=== PATIENT | male | born 1960 | race Caucasian/White ===

== ENCOUNTER 2017-02-08 16:31 | Inpatient (IN) | payer OTHER ==
[2017-02-08 16:36] VITALS: BMI 34.7
--- NOTE | 2017-02-08 17:01 | PDOC ---
History of Present Illness <Eric Kaur - Last Filed: 02/08/17 22:06> <Petros Allen - Last Filed: 02/08/17 22:41> - General Chief Complaint: Pain Stated Complaint: PCP SENT/PAIN Time Seen by Provider: 02/08/17 16:59 Past History - Past Medical History GI Disorders: Yes (gastritis) - Psycho/Social/Smoking Cessation Hx Suicidal Ideation: No Smoking History: Never smoked Information on smoking cessation initiated: No Hx Alcohol Use: No Drug/Substance Use Hx: No Substance Use Type: None <Eric Kaur - Last Filed: 02/08/17 22:06> <Petros Allen - Last Filed: 02/08/17 22:41> - Past Medical History Allergies/Adverse Reactions: Allergies Allergy/AdvReac Type Severity Reaction Status Date / Time No Known Allergies Allergy Verified 02/08/17 16:36 Home Medications: Ambulatory Orders NK [No Known Home Medication] 02/08/17 *Physical Exam - Vital Signs Last Vital Signs Temp Pulse Resp BP Pulse Ox 99.1 F 125 H 18 116/77 96 02/08/17 16:34 02/08/17 16:34 02/08/17 16:34 02/08/17 16:34 02/08/17 16:34 <Eric Kaur - Last Filed: 02/08/17 22:06> - Vital Signs Last Vital Signs Temp Pulse Resp BP Pulse Ox 99.1 F 125 H 18 116/77 96 02/08/17 16:34 02/08/17 16:34 02/08/17 16:34 02/08/17 16:34 02/08/17 16:34 <Petros Allen - Last Filed: 02/08/17 22:41> Heart Score/ECG Review - ECG Impressions Comment:: 02/08/17 19:[address] Kaur Impression: Normal sinus rhythm Cannot rule out inferior infarct Abnormal EKG Vent rate 98 bpm <Petros Allen - Last Filed: 02/08/17 22:41> ED Treatment Course - LABORATORY CBC & Chemistry Diagram: 02/08/17 17:35 02/08/17 17:35 <Eric Kaur - Last Filed: 02/08/17 22:06> - LABORATORY CBC & Chemistry Diagram: 02/08/17 22:03 02/08/17 17:35 - ADDITIONAL ORDERS Additional order review: Laboratory Results 02/08/17 02/08/17 02/08/17 18:18 17:35 17:35 Sodium 138 Potassium 4.4 Chloride 100 Carbon Dioxide 28 Anion Gap 10 BUN 17 Creatinine 1.1 Creat Clearance w eGFR > 60 Random Glucose 103 Calcium 9.0 Total Bilirubin 0.7 Direct Bilirubin 0.3 H AST 78 H D ALT 74 D Alkaline Phosphatase 73 Creatine Kinase 244 Troponin I 4.98 H* Total Protein 6.6 Albumin 2.9 L D Lipase 716 H Urine Color Dkyellow Urine Appearance Clear Urine pH 5.0 Urine Protein Negative Urine Glucose (UA) Negative Urine Ketones Negative Urine Blood 1+ H Urine Nitrite Negative Urine Bilirubin Negative Urine Urobilinogen Negative Ur Leukocyte Esterase Negative 02/08/17 17:35 RBC 5.13 MCV 83.2 MCHC 33.0 RDW 13.1 MPV 9.0 Neutrophils % 83.8 H Lymphocytes % 6.4 L D Monocytes % 9.1 Eosinophils % 0.2 Basophils % 0.5 - Medications Given in the ED: ED Medications Discontinued Medications Generic Name Dose Route Start Last Admin Trade Name Freq PRN Reason Stop Dose Admin Sodium Chloride 1,000 mls @ 1,000 mls/hr 02/08/17 17:09 02/08/17 17:41 Normal Saline - IV 02/08/17 18:08 1,000 mls/hr ASDIR STA Administration <Petros Allen - Last Filed: 02/08/17 22:41> Medical Decision Making - Medical Decision Making Upon receiving the results for troponin results, Dr. Kaur immediately ordered a repeat ECG and put in orders for aspirin, nitro, and beta blockers. The patient has no pain at present although he does admit to some RUQ discomfort. At the directive of Dr. Foss patient was given Nitro for RUQ pain which has resolved. Patient remains pain free. 02/08/17 19:43 First call to Doctor Dominiuqe harvey. Dr. Junior is the sales consultant residential manager doctor. Awaiting call back. 02/08/17 19:51 Dr. Junior called back. Case discussed. Advised to consult the sales consultant residential manager dry house operator. 02/08/17 19:59 First call to sales consultant residential manager dry house operator, Dr. Foss. 02/08/17 20:01 Dr. Foss called into the ED. 02/08/17 22:03 First call (for second discussion) to Dr. Vernon harvey. 02/08/17 22:28 Second call (for second discussion) to Dr. Vernon harvey 02/08/17 22:39 Dr. Parsons called into ER for Dr. Junior. Case discussed. Agreed to consult Dr. Stack 02/08/17 22:[address] Sreekanth harvey. Awaiting call back. Diagnosis: NSTEMI <Petros Allen - Last Filed: 02/08/17 22:41> *DC/Admit/Observation/Transfer - Discharge Dispostion Admit: Yes - Attestations Physician Attestion: 02/08/17 17:01 I, Dr. Eric Kaur, attest that this document has been prepared under my direction and personally reviewed by me in its entirety. I further attest, that it accurately reflects all work, treatment, procedures and medical decision -making performed by me. <Eric Kaur - Last Filed: 02/08/17 22:06> - Attestations Scribe Attestion: 02/08/17 22:27 Documentation prepared by Petros Allen, acting as medical office coordinator for Eric Kaur DO. <Petros Allen - Last Filed: 02/08/17 22:41> Diagnosis at time of Disposition: Non-STEMI (non-ST elevated myocardial infarction), Acute cholecystitis due to biliary calculus - Discharge Dispostion Condition at time of disposition: Improved - Referrals
[2017-02-08] MEDS ORDERED: SODIUM CHLORIDE 1,000 ML IV STA (17:09)
--- NOTE | 2017-02-08 17:40 | PDOC ---
History of Present Illness <Petros Allen - Last Filed: 02/08/17 20:18> - General History Source: Patient Exam Limitations: No Limitations - History of Present Illness Travel History: No Initial Comments: 02/08/17 17:40 57 yo M with significant PMHx of hiatal hernia presents with one week history of worsening abdominal pain. He is patient of Dr. Grey and was sent today for CT of abdomen. CT should gallbladder wall thickening and patient has had increased RUQ pain with fevers and chills. Describes 6/10 RUQ pain that radiates to epigastrium. Aggravated by eating and position change. No alleviating factors.Had tried Nexium with minimal relief. Denies CP,SPRING, SOB, N/ V. Timing/Duration: reports: getting worse Quality: reports: moderate Abdominal Pain Onset Location: reports: RUQ Pain Radiation: reports: epigastric Treatment Prior to Arrive: improves with: antacids Aggravating Factors: improves with: Eating <Juan Wiley - Last Filed: 02/09/17 16:19> - General Chief Complaint: Pain Stated Complaint: PCP SENT/PAIN Time Seen by Provider: 02/08/17 16:59 Past History <Petros Allen - Last Filed: 02/08/17 20:18> - Travel Traveled outside of the country in the last 30 days: No Close contact w/someone who was outside of country & ill: No - Past Medical History GI Disorders: Yes (gastritis) - Psycho/Social/Smoking Cessation Hx Suicidal Ideation: No Smoking History: Never smoked Information on smoking cessation initiated: No Hx Alcohol Use: No Drug/Substance Use Hx: No Substance Use Type: None <Juan Wiley - Last Filed: 02/09/17 16:19> - Past Medical History Allergies/Adverse Reactions: Allergies Allergy/AdvReac Type Severity Reaction Status Date / Time No Known Allergies Allergy Verified 02/08/17 16:36 Home Medications: Ambulatory Orders NK [No Known Home Medication] 02/08/17 Review of Systems - Review of Systems ABD/GI: Yes: Poor Appetite, Poor Fluid Intake <Juan Wiley - Last Filed: 02/09/17 16:19> *Physical Exam - Vital Signs Last Vital Signs Temp Pulse Resp BP Pulse Ox 99.1 F 113 H 20 118/77 96 02/08/17 16:34 02/08/17 20:04 02/08/17 20:04 02/08/17 20:04 02/08/17 20:04 <Petros Allen - Last Filed: 02/08/17 20:18> - Vital Signs Last Vital Signs Temp Pulse Resp BP Pulse Ox 99.1 F 125 H 18 116/77 96 02/08/17 16:34 02/08/17 16:34 02/08/17 16:34 02/08/17 16:34 02/08/17 16:34 - Physical Exam General Appearance: Yes: Moderate Distress HEENT: positive: EOMI, ALY Neck: positive: Supple Respiratory/Chest: positive: Lungs Clear, Normal Breath Sounds. negative: Respiratory Distress, Accessory Muscle Use Cardiovascular: positive: Regular Rhythm, S1, S2, Tachycardia. negative: Edema , JVD, Murmur Gastrointestinal/Abdominal: positive: Normal Bowel Sounds, Soft, Guarding, Tenderness (RUQ). negative: Hepatomegaly, Spleenomegaly Musculoskeletal: positive: Normal Inspection. negative: CVA Tenderness Extremity: positive: Normal Inspection, Normal Range of Motion Integumentary: positive: Normal Color, Dry, Warm. negative: Cyanotic, Erythema , Jaundice Neurologic: positive: regional environmental manager II-XII NML intact, Fully Oriented, Alert, Normal Mood/ Affect <Juan Wiley - Last Filed: 02/09/17 16:19> Heart Score/ECG Review - ECG Impressions Comment:: 02/08/17 20:18 Repeated ECG Normal Sinus rhythm Cannot rule out inderior infarct, age undetermnined. Abnormal ECG Rate of 98 bpm No changes from initial ECG <Petros Allen - Last Filed: 02/08/17 20:18> ED Treatment Course - LABORATORY CBC & Chemistry Diagram: 02/08/17 17:35 02/08/17 17:35 - ADDITIONAL ORDERS Additional order review: Laboratory Results 02/08/17 02/08/17 02/08/17 18:18 17:35 17:35 Sodium 138 Potassium 4.4 Chloride 100 Carbon Dioxide 28 Anion Gap 10 BUN 17 Creatinine 1.1 Creat Clearance w eGFR > 60 Random Glucose 103 Calcium 9.0 Total Bilirubin 0.7 Direct Bilirubin AST 78 H D ALT 74 D Alkaline Phosphatase 73 Creatine Kinase Creatine Kinase Index CK-MB (CK-2) CK-MB (CK-2) Rel Index Cancelled Troponin I Total Protein 6.6 Albumin 2.9 L D Lipase 716 H Urine Color Dkyellow Urine Appearance Clear Urine pH 5.0 Urine Protein Negative Urine Glucose (UA) Negative Urine Ketones Negative Urine Blood 1+ H Urine Nitrite Negative Urine Bilirubin Negative Urine Urobilinogen Negative Ur Leukocyte Esterase Negative Urine RBC 5 Urine WBC 1 Urine Mucus Few 02/08/17 17:35 Sodium Potassium Chloride Carbon Dioxide Anion Gap BUN Creatinine Creat Clearance w eGFR Random Glucose Calcium Total Bilirubin Direct Bilirubin 0.3 H AST ALT Alkaline Phosphatase Creatine Kinase 244 Creatine Kinase Index 3.4 CK-MB (CK-2) 8.226 H CK-MB (CK-2) Rel Index Troponin I 4.98 H* Total Protein Albumin Lipase Urine Color Urine Appearance Urine pH Urine Protein Urine Glucose (UA) Urine Ketones Urine Blood Urine Nitrite Urine Bilirubin Urine Urobilinogen Ur Leukocyte Esterase Urine RBC Urine WBC Urine Mucus 02/08/17 17:35 RBC 5.13 MCV 83.2 MCHC 33.0 RDW 13.1 MPV 9.0 Neutrophils % 83.8 H Lymphocytes % 6.4 L D Monocytes % 9.1 Eosinophils % 0.2 Basophils % 0.5 - Medications Given in the ED: ED Medications Discontinued Medications Generic Name Dose Route Start Last Admin Trade Name Freq PRN Reason Stop Dose Admin Aspirin 324 mg 02/08/17 19:32 02/08/17 19:50 Asa - PO 02/08/17 19:33 324 mg ONCE ONE Administration Sodium Chloride 1,000 mls @ 1,000 mls/hr 02/08/17 17:09 02/08/17 17:41 Normal Saline - IV 02/08/17 18:08 1,000 mls/hr ASDIR STA Administration Metoprolol Tartrate 25 mg 02/08/17 19:32 02/08/17 19:50 Lopressor - PO 02/08/17 19:33 25 mg ONCE ONE Administration <Petros Allen - Last Filed: 02/08/17 20:18> - LABORATORY CBC & Chemistry Diagram: 02/09/17 03:39 02/09/17 03:39 <Juan Wiley - Last Filed: 02/09/17 16:19> Medical Decision Making - Medical Decision Making 02/08/17 17:46 A:57 yo M with significant PMHx of hiatal hernia presents with one week history of worsening abdominal pain P: * Will get CBC, CMP, and UA * Gallbladder US. * Will most likely need admission. <Juan Wiley - Last Filed: 02/09/17 16:19> *DC/Admit/Observation/Transfer <Petros Allen - Last Filed: 02/08/17 20:18> <Juan Wiley - Last Filed: 02/09/17 16:19> Diagnosis at time of Disposition: Non-STEMI (non-ST elevated myocardial infarction), Acute cholecystitis due to biliary calculus - Discharge Dispostion Condition at time of disposition: Improved - Referrals - Patient Instructions - Post Discharge Activity
[2017-02-08 18:18] LABS: BASOPHIL 0.5 % (0-2.0); EOSINOPHIL 0.2 % (0-4.5); MCH 27.4 pg (25.7-33.7); MEAN CELL VOLUME 83.2 fl (80-96); NEUTROPHILS 83.8 % (42.8-82.8); PLATELET COUNT 213 K/MM3 (134-434); RDW 13.1 % (11.9-15.9); WHITE BLOOD COUNT 13.9 K/mm3 (4.0-10.0)
[2017-02-08 19:05] LABS: ALBUMIN 2.9 g/dl (3.4-5.0); ANION GAP 10 (8-16); CO2 28 mmol/L (21-32); CREATININE 1.1 mg/dL (0.7-1.3); GLUCOSE,RANDOM 103 mg/dL (74-106); SGOT/AST 78 U/L (15-37); SGPT/ALT 74 U/L (12-78)
[2017-02-08 19:07] LABS: ALK PHOS 73 U/L (45-117); BILIRUBIN,TOTAL 0.7 mg/dL (0.2-1.0); TOT PROT 6.6 g/dl (6.4-8.2)
[2017-02-08 19:25] LABS: BILIRUBIN,DIRECT 0.3 mg/dL (0.0-0.2)
[2017-02-08 19:27] LABS: URINE APPEARANCE CLEAR; URINE BILIRUBIN NEGATIVE (NEGATIVE); URINE COLOR DKYELLOW; URINE GLUCOSE (UA) NEGATIVE (NEGATIVE); URINE KETONE NEGATIVE (NEGATIVE); URINE LEUK ESTERASE NEGATIVE (NEGATIVE); URINE NITRITE NEGATIVE (NEGATIVE); URINE PROTEIN NEGATIVE (NEGATIVE); URINE UROBILINOGEN NEGATIVE E.U./dl (0.2-1.0)
[2017-02-08 19:28] LABS: TROPONIN I 4.98 ng/ml (0.00-0.05)
[2017-02-08 19:28] LABS: URINE BLOOD 1+ (NEGATIVE)
[2017-02-08] MEDS ORDERED: ASPIRIN 81 MG CHEWABLE TABLETS PO ONE (19:32)
[2017-02-08] MEDS ORDERED: NITROGLYCERIN SUBLINGUAL 1/150 0.4 MG TAB SL PRN (19:32)
[2017-02-08] MEDS ORDERED: METOPROLOL TARTRATE 25 MG TABLET (FP) PO ONE (19:32)
[2017-02-08 19:35] LABS: URINE MUCUS FEW; URINE RBC 5 /hpf (0-3); URINE WBC 1 /hpf (3-5)
[2017-02-08] MEDS ORDERED: NITROGLYCERIN SUBLINGUAL 1/150 0.4 MG TAB ONE (19:42)
[2017-02-08] MEDS ORDERED: ASPIRIN 325 MG TABLET ONE (19:52)
[2017-02-08] MEDS ORDERED: METOPROLOL TARTRATE 25 MG TABLET (FP) ONE (19:53)
[2017-02-08] MEDS ORDERED: HEPARIN NA (PORCINE) 5,000 UNITS/ML 1ML VIAL IVPUSH PRN (20:06)
[2017-02-08] MEDS ORDERED: CLOPIDOGREL BISULFATE 300 MG TABLET PO ONE (20:07)
[2017-02-08] MEDS ORDERED: ATORVASTATIN CA 80 MG TABLET (FP) PO ONE (20:07)
[2017-02-08] MEDS ORDERED: ATORVASTATIN CA 80 MG TABLET (FP) ONE (20:21)
[2017-02-08] MEDS ORDERED: CLOPIDOGREL BISULFATE 300 MG TABLET ONE (20:21)
[2017-02-08] MEDS ORDERED: HEPARIN NA (PORCINE) 5,000 UNITS/ML 1ML VIAL ONE (20:24)
[2017-02-08] MEDS: HEPARIN NA (PORCINE) 5,000 UNITS/ML 1ML VIAL IVPUSH PRN (20:31)
[2017-02-08] MEDS ORDERED: HEPARIN INFUSION - 500 ML IVPB ONE (20:32)
[2017-02-08] MEDS: HEPARIN INFUSION - 500 ML IVPB SCH (21:12)
--- NOTE | 2017-02-08 21:26 | HP ---
Admitting History and Physical - Primary Care Physician PCP: Corey Fox - Admission Chief Complaint: Abdominal pain History of Present Illness: Patient with a history of GERD on PPI has been having abdominal pain for about 1 week usually epigastric in location. He was referred to GI service and they ordered an Abdominal CAT scan and lab. Report was possible acute Cholecystitis and WBC 13,900. Referred to ER and sonogram in ER confirmed dx but Troponin level elevated at 4.98. Possible NSTEMI. To be admitted to Telemetry as per Cardiology and I will place on IV antibiotics with followup testing. History Source: Patient Limitations to Obtaining History: No Limitations - Past Medical History Cardiovascular: Yes: Hyperlipdemia Gastrointestinal: Yes: Gastritis, GERD, Other (inguinal hernia) Hepatobiliary: Yes: Cholecystitis Endocrine: Yes: Other (Obesity) - Smoking History Smoking history: Never smoked - Alcohol/Substance Use Hx Alcohol Use: No History of Substance Use: reports: None - Social History Usual Living Arrangement: Yes: With Spouse ADL: Independent History of Recent Travel: No Home Medications - Allergies Allergies/Adverse Reactions: Allergies Allergy/AdvReac Type Severity Reaction Status Date / Time No Known Allergies Allergy Verified 02/08/17 16:36 - Home Medications Home Medications: Ambulatory Orders NK [No Known Home Medication] 02/08/17 Family Disease History - Family Disease History Family Disease History: Other: Father (parkinsonism) Review of Systems - Review of Systems Constitutional: denies: Chills, Fever Cardiovascular: reports: Other (no) Respiratory: denies: SOB on Exertion Gastrointestinal: reports: Abdominal Pain (epigastric off and on X 1 week), Indigestion Genitourinary: reports: No Symptoms Breasts: reports: No Symptoms Reported Musculoskeletal: reports: No Symptoms Integumentary: reports: No Symptoms Neurological: reports: No Symptoms, Change in Speech (no exertional chest pain) Hematology/Lymphatic: reports: No Symptoms Psychiatric: reports: Anxiety Pain Intensity: 3 Physical Examination Vital Signs: Vital Signs Temperature 99.1 F 02/08/17 16:34 Pulse Rate 113 H 02/08/17 20:04 Respiratory Rate 20 02/08/17 20:04 Blood Pressure 118/77 02/08/17 20:04 O2 Sat by Pulse Oximetry (%) 96 02/08/17 20:04 Constitutional: Yes: Anxious Eyes: Yes: Conjunctiva Clear Cardiovascular: Yes: Tachycardia Respiratory: Yes: Diminished Gastrointestinal: Yes: Soft, Hyperactive Bowel Sounds, Tenderness, Epigastrium ( mild) Musculoskeletal: Yes: WNL Extremities: Yes: WNL Edema: No Integumentary: Yes: WNL Neurological: Yes: Alert, Oriented ...Motor Strength: WNL Psychiatric: Yes: WNL Labs: CBC, BMP 02/08/17 17:35 Imaging - Results Cat Scan: Report Reviewed Ultrasound: Report Reviewed EKG: Report Reviewed Problem List - Problems (1) Non-STEMI (non-ST elevated myocardial infarction) Assessment/Plan: Troponin 4.98 EKG no acute change from previous. Code(s): I21.4 - NON-ST ELEVATION (NSTEMI) MYOCARDIAL INFARCTION (2) Abdominal pain Assessment/Plan: Mild degree of pain now. Code(s): R10.9 - UNSPECIFIED ABDOMINAL PAIN (3) Acute cholecystitis Assessment/Plan: Confirmed by Abdominal sonogram. Elevated lipase Code(s): K81.0 - ACUTE CHOLECYSTITIS (4) Obesity Assessment/Plan: 235 lbs. Code(s): E66.9 - OBESITY, UNSPECIFIED (5) Hyperlipidemia Assessment/Plan: By history; lab ordered for AM Code(s): E78.5 - HYPERLIPIDEMIA, UNSPECIFIED
[2017-02-08] MEDS ORDERED: SENNOSIDES 8.6MG TABLET (FP) PO PRN (21:42)
[2017-02-08] MEDS ORDERED: PIPERACILLIN/TAZOB 4.5 GM 100 ML IVPB ONE (22:06)
[2017-02-08] MEDS: PIPERACILLIN/TAZOB 4.5 GM/100 ML PRE-DOCKED IVPB SCH (22:09)
[2017-02-08 22:12] LABS: BASOPHIL 0.2 % (0-2.0); EOSINOPHIL 0.2 % (0-4.5); MCH 27.9 pg (25.7-33.7); MCHC 33.2 g/dl (32.0-35.9); MEAN CELL VOLUME 83.8 fl (80-96); MEAN PLT VOLUME 8.9 fl (7.5-11.1); NEUTROPHILS 84.1 % (42.8-82.8); PLATELET COUNT 188 K/MM3 (134-434); RDW 13.3 % (11.9-15.9); WHITE BLOOD COUNT 12.7 K/mm3 (4.0-10.0)
[2017-02-08 22:37] LABS: ALBUMIN 2.8 g/dl (3.4-5.0); AMYLASE 67 U/L (25-115); ANION GAP 9 (8-16); BILIRUBIN,TOTAL 0.6 mg/dL (0.2-1.0); CALCIUM 8.1 mg/dL (8.5-10.1); CO2 26 mmol/L (21-32); CREATININE 1.1 mg/dL (0.7-1.3); GLUCOSE,RANDOM 122 mg/dL (74-106); SGOT/AST 75 U/L (15-37); SGPT/ALT 66 U/L (12-78); TOT PROT 6.1 g/dl (6.4-8.2)
[2017-02-08 22:53] LABS: ALK PHOS 71 U/L (45-117)
[2017-02-08 23:28] LABS: TROPONIN I 4.51 ng/ml (0.00-0.05)
[2017-02-09] MEDS: PIPERACILLIN/TAZOB 4.5 GM/100 ML PRE-DOCKED IVPB SCH ×3 (01:55→17:10)
[2017-02-09 03:50] LABS: BASOPHIL 0.2 % (0-2.0); EOSINOPHIL 0.4 % (0-4.5); MCH 27.7 pg (25.7-33.7); MCHC 33.1 g/dl (32.0-35.9); MEAN CELL VOLUME 83.8 fl (80-96); NEUTROPHILS 79.4 % (42.8-82.8); PLATELET COUNT 193 K/MM3 (134-434); RDW 13.3 % (11.9-15.9); WHITE BLOOD COUNT 12.2 K/mm3 (4.0-10.0)
[2017-02-09 04:40] LABS: TROPONIN I 2.87 ng/ml (0.00-0.05)
[2017-02-09 04:51] LABS: ALBUMIN 2.5 g/dl (3.4-5.0); ALK PHOS 67 U/L (45-117); AMYLASE 65 U/L (25-115); ANION GAP 9 (8-16); BILIRUBIN,TOTAL 0.6 mg/dL (0.2-1.0); C-REACTIVE PROTEIN 14.9 MG/DL (0.00-0.3); CALCIUM 8.5 mg/dL (8.5-10.1); CO2 27 mmol/L (21-32); CREATININE 1.1 mg/dL (0.7-1.3); GLUCOSE,RANDOM 117 mg/dL (74-106); SGOT/AST 56 U/L (15-37); SGPT/ALT 63 U/L (12-78); TOT PROT 5.8 g/dl (6.4-8.2)
[2017-02-09] MEDS: HEPARIN NA (PORCINE) 5,000 UNITS/ML 1ML VIAL IVPUSH PRN ×3 (05:47→23:26)
[2017-02-09 06:26] LABS: ERYTHROCYTE SEDIMENTATION RATE 78 mm/hr (0-20)
--- NOTE | 2017-02-09 09:57 | PN ---
Progress Note, Physician Chief Complaint: Patient has no abdominal or chest pain today. - Current Medication List Current Medications: Active Medications Acetaminophen (Tylenol -) 650 mg PO Q6H PRN PRN Reason: FEVER OR PAIN Heparin Sodium (Porcine) (Heparin -) 1,000 unit IVPUSH PRN PRN PRN Reason: Heparin Heparin Sodium (Porcine) (Heparin -) 5,000 unit IVPUSH PRN PRN PRN Reason: Heparin Last Admin: 02/09/17 05:47 Dose: 5,000 unit Heparin Sodium/Dextrose (Heparin Infusion -) 500 mls @ 20 mls/hr IVPB TITR THEODORA ; 1,000 UNITS/HR PRN Reason: Protocol Last Titration: 02/09/17 05:48 Dose: 1,150 units/hr Nitroglycerin (Nitrostat -) 0.4 mg SL Q5M PRN PRN Reason: FOR CHEST PAIN Last Admin: 02/08/17 19:47 Dose: 0.4 mg Piperacillin Sod/Tazobactam Sod (Zosyn 4.5gm Ivpb (Pre-Docked)) 4.5 gm IVPB Q8H -IV THEODORA Last Admin: 02/09/17 01:55 Dose: 4.5 gm Senna (Senna -) 2 tab PO HS PRN PRN Reason: CONSTIPATION - Objective Vital Signs: Vital Signs Temperature 98.1 F 02/09/17 06:00 Pulse Rate 96 H 02/09/17 06:00 Respiratory Rate 18 02/09/17 06:00 Blood Pressure 115/68 02/09/17 06:00 O2 Sat by Pulse Oximetry (%) 98 02/09/17 06:00 Constitutional: Yes: Calm Eyes: No: Sclera Icterus Cardiovascular: Yes: Regular Rate and Rhythm. No: Murmur Respiratory: Yes: Diminished. No: Rales Gastrointestinal: Yes: Soft, Abdomen, Obese, Tenderness (mild RUQ) Genitourinary: No: Alvarado Present Edema: No Neurological: Yes: Alert, Oriented Labs: CBC, BMP 02/09/17 03:39 02/09/17 03:39 Problem List - Problems (1) Non-STEMI (non-ST elevated myocardial infarction) Assessment/Plan: Troponin still elevated but lower at 2.87 today To review EKG Code(s): I21.4 - NON-ST ELEVATION (NSTEMI) MYOCARDIAL INFARCTION (2) Abdominal pain Assessment/Plan: Only slight RUQ tenderness on deep palpation. Code(s): R10.9 - UNSPECIFIED ABDOMINAL PAIN (3) Acute cholecystitis Assessment/Plan: Sono report noted. Code(s): K81.0 - ACUTE CHOLECYSTITIS (4) Obesity Assessment/Plan: 235 lbs. Code(s): E66.9 - OBESITY, UNSPECIFIED (5) Hyperlipidemia Assessment/Plan: Lipid profile ordered. Code(s): E78.5 - HYPERLIPIDEMIA, UNSPECIFIED
--- NOTE | 2017-02-09 10:26 | PN ---
Progress Note (short form) - Note Progress Note: ID consult consulted imp/reccd acute cholycystitis NSTEMI f/u blood cultures continue zosyn surgery and cardiology to see Problem List - Problems (1) Acute cholecystitis Code(s): K81.0 - ACUTE CHOLECYSTITIS (2) Non-STEMI (non-ST elevated myocardial infarction) Code(s): I21.4 - NON-ST ELEVATION (NSTEMI) MYOCARDIAL INFARCTION
--- NOTE | 2017-02-09 10:50 | EKG ---
Test Reason : Blood Pressure : / mmHG Vent. Rate : 107 BPM Atrial Rate : 107 BPM P-R Int : 122 ms QRS Dur : 080 ms QT Int : 322 ms P-R-T Axes : 049 -05 006 degrees QTc Int : 429 ms SINUS TACHYCARDIA POSSIBLE INFERIOR INFARCT (CITED ON OR BEFORE 08-FEB-2017) ABNORMAL ECG WHEN COMPARED WITH ECG OF 08-FEB-2017 18:07, NO SIGNIFICANT CHANGE WAS FOUND Confirmed by IVET POOLE, LUH ([id number]) on 02/09/2017 10:49:55 AM Referred By: BERNY Confirmed By:LUH COONEY MD
--- NOTE | 2017-02-09 10:52 | EKG ---
Test Reason : Blood Pressure : / mmHG Vent. Rate : 083 BPM Atrial Rate : 083 BPM P-R Int : 130 ms QRS Dur : 096 ms QT Int : 358 ms P-R-T Axes : 066 007 006 degrees QTc Int : 420 ms NORMAL SINUS RHYTHM CANNOT RULE OUT INFERIOR INFARCT (CITED ON OR BEFORE 08-FEB-2017) ABNORMAL ECG WHEN COMPARED WITH ECG OF 08-FEB-2017 20:13, NO SIGNIFICANT CHANGE WAS FOUND Confirmed by LUH COONEY MD ([id number]) on 02/09/2017 10:52:02 AM Referred By: BOUBACAR FOWLER Confirmed By:LUH COONEY MD
--- NOTE | 2017-02-09 10:54 | EKG ---
Test Reason : Blood Pressure : / mmHG Vent. Rate : 105 BPM Atrial Rate : 105 BPM P-R Int : 128 ms QRS Dur : 076 ms QT Int : 324 ms P-R-T Axes : 069 010 017 degrees QTc Int : 428 ms SINUS TACHYCARDIA CANNOT RULE OUT INFERIOR INFARCT (CITED ON OR BEFORE 08-FEB-2017) EARLY REPOLARIZATION WHEN COMPARED WITH ECG OF 03-JUL-2014 19:40, ST ELEVATION NOW PRESENT IN LATERAL LEADS Confirmed by LUH COONEY MD ([id number]) on 02/09/2017 10:54:17 AM Referred By: Confirmed By:LUH COONEY MD
[2017-02-09 11:23] LABS: CHOLESTEROL 145 mg/dL (50-200); LDL CHOLESTEROL (ONLY SJRH) 110 mg/dL (5-100)
--- NOTE | 2017-02-09 12:02 | CON.CARD ---
Cardiology Consult (text) - Consultation Consultation Note: cc: abd pain, fever hpi: 57 m hx gerd, hld here with abd pain, fever. Has been having abd pain ( across entire lower abd) for about a month but over last week has been much worse with fever as well. Outpt imaging showed acute kandy so sent to ER and started on abx. No cp, sob, palps, dizzy, loc, pnd, orthopnea, le edema. No hx hrt dz, no prior cardiac testing. Found to have +trops so cardio eval requested. This AM feeling less abd pain. pmh: per hpi psh: nc fam: no premature cad or scd social: no tob ros: per hpi; no cough, nasal congestion, rash, muscle pain, soto, vision changes , gib, hematuria, dysuria meds: Home Medications Medication Instructions Recorded NK [No Known Home Medication] 02/08/17 pe: Vital Signs Period Temp Pulse Resp BP Sys/Bernal Pulse Ox Last 24 Hr 98 F-99.1 F 10-125 18-20 108-128/68-82 96-98 nad no jvd rrr s1s2 no mrg cta bl nl eff aaox3 no le e/c/c abd nd, pos bs, mild diff tenderness no jaundice diaphoresis pos dp pt no carotid bruits Laboratory Last Values WBC 12.2 K/mm3 (4.0-10.0) H 02/09/17 03:39 RBC 4.61 M/mm3 (4.00-5.60) 02/09/17 03:39 Hgb 12.8 GM/dL (11.7-16.9) 02/09/17 03:39 Hct 38.6 % (35.4-49) 02/09/17 03:39 MCV 83.8 fl (80-96) 02/09/17 03:39 MCHC 33.1 g/dl (32.0-35.9) 02/09/17 03:39 RDW 13.3 % (11.9-15.9) 02/09/17 03:39 Plt Count 193 K/MM3 (134-434) 02/09/17 03:39 MPV 9.0 fl (7.5-11.1) 02/09/17 03:39 Neutrophils % 79.4 % (42.8-82.8) 02/09/17 03:39 Lymphocytes % 9.1 % (8-40) D 02/09/17 03:39 Monocytes % 10.9 % (3.8-10.2) H 02/09/17 03:39 Eosinophils % 0.4 % (0-4.5) D 02/09/17 03:39 Basophils % 0.2 % (0-2.0) 02/09/17 03:39 ESR 78 mm/hr (0-20) H 02/09/17 03:39 PTT (Actin FS) 29.7 SECONDS (26.9-34.4) 02/09/17 03:39 Sodium 141 mmol/L (136-145) 02/09/17 03:39 Potassium 4.1 mmol/L (3.5-5.1) 02/09/17 03:39 Chloride 105 mmol/L (98-107) 02/09/17 03:39 Carbon Dioxide 27 mmol/L (21-32) 02/09/17 03:39 Anion Gap 9 (8-16) 02/09/17 03:39 BUN 19 mg/dL (7-18) H 02/09/17 03:39 Creatinine 1.1 mg/dL (0.7-1.3) 02/09/17 03:39 Creat Clearance w eGFR > 60 (>60) 02/09/17 03:39 Random Glucose 117 mg/dL (74-106) H 02/09/17 03:39 Calcium 8.5 mg/dL (8.5-10.1) 02/09/17 03:39 Total Bilirubin 0.6 mg/dL (0.2-1.0) 02/09/17 03:39 Direct Bilirubin 0.3 mg/dL (0.0-0.2) H 02/08/17 17:35 AST 56 U/L (15-37) H D 02/09/17 03:39 ALT 63 U/L (12-78) 02/09/17 03:39 Alkaline Phosphatase 67 U/L (45-117) 02/09/17 03:39 Creatine Kinase 133 IU/L (39-308) 02/09/17 03:35 Creatine Kinase Index 3.4 % (0.0-5.0) 02/08/17 17:35 CK-MB (CK-2) 8.226 ng/ml (0.5-3.6) H 02/08/17 17:35 CK-MB (CK-2) Rel Index Cancelled 02/08/17 17:35 Troponin I 2.87 ng/ml (0.00-0.05) H* D 02/09/17 03:35 C-Reactive Protein 14.9 MG/DL (0.00-0.3) H 02/09/17 03:39 Total Protein 5.8 g/dl (6.4-8.2) L 02/09/17 03:39 Albumin 2.5 g/dl (3.4-5.0) L 02/09/17 03:39 Triglycerides Cancelled 02/09/17 10:30 Cholesterol Cancelled 02/09/17 10:30 Total LDL Cholesterol Cancelled 02/09/17 10:30 HDL Cholesterol Cancelled 02/09/17 10:30 Total Amylase 65 U/L (25-115) 02/09/17 03:39 Lipase 866 U/L (73-393) H 02/09/17 03:39 Urine Color Dkyellow 02/08/17 18:18 Urine Appearance Clear 02/08/17 18:18 Urine pH 5.0 (5.0-8.0) 02/08/17 18:18 Urine Protein Negative (NEGATIVE) 02/08/17 18:18 Urine Glucose (UA) Negative (NEGATIVE) 02/08/17 18:18 Urine Ketones Negative (NEGATIVE) 02/08/17 18:18 Urine Blood 1+ (NEGATIVE) H 02/08/17 18:18 Urine Nitrite Negative (NEGATIVE) 02/08/17 18:18 Urine Bilirubin Negative (NEGATIVE) 02/08/17 18:18 Urine Urobilinogen Negative E.U./dl (0.2-1.0) 02/08/17 18:18 Ur Leukocyte Esterase Negative (NEGATIVE) 02/08/17 18:18 Urine RBC 5 /hpf (0-3) 02/08/17 18:18 Urine WBC 1 /hpf (3-5) 02/08/17 18:18 Urine Mucus Few 02/08/17 18:18 tele: sr, no alarms ecg 02/08/17: sr, nl intervals, no ischemic changes a/p: 57 m hx gerd, hld here with abd pain, fever. acute cholecystitis: -cont abx, remains npo -surgery eval positive trops, possible nstemi: -trops elevated to 4.9 on admit, now trending down, 2.8. CK nl x3. ECG unremarkable. -it is possible pt is having elevated trops in setting of acute kandy but also possibly having nstemi. He was started on hep gtt overnight for acs and also given loading dose of plavix. -given his acute kandy and the possibility he may need acute interventions, will hold asa/plavix for now and cont with hep gtt -will check echo to look for any WMAs -for now cont tele and trend ce's -if he is to have non-emergent intervention for acute kandy he will likely need risk stratification with nuclear stress test beforehand hld: -diet control as outpt
[2017-02-09] MEDS: HEPARIN INFUSION - 500 ML IVPB SCH ×3 (13:28→23:26)
--- NOTE | 2017-02-09 13:54 | CONSULT ---
Consult Consult Specialty:: Surgery Reason for Consultation:: Acute cholecystitis - History of Present Illness Chief Complaint: Abdominal pain x several days History of Present Illness: 57 male presents for abdominal pain Has had on and off pain for several months as well No nausea/vomiting No fevers - History Source History Provided By: Patient Limitations to Obtaining History: No Limitations - Past Medical History Cardio/Vascular: Yes: Hyperlipdemia Gastrointestinal: Yes: Gastritis, GERD, Other (inguinal hernia) Hepatobiliary: Yes: Cholecystitis Endocrine: Yes: Other (Obesity) - Alcohol/Substance Use Hx Alcohol Use: No History of Substance Use: reports: None - Smoking History Smoking history: Never smoked - Social History ADL: Independent History of Recent Travel: No Home Medications - Allergies Allergies/Adverse Reactions: Allergies Allergy/AdvReac Type Severity Reaction Status Date / Time No Known Allergies Allergy Verified 02/08/17 16:36 - Home Medications Home Medications: Ambulatory Orders NK [No Known Home Medication] 02/08/17 Family Disease History - Family Disease History Family Disease History: Other: Father (parkinsonism) Review of Systems - Review of Systems Constitutional: denies: Chills, Fever Neck: denies: No Symptoms Cardiovascular: denies: Chest Pain Respiratory: denies: Cough Gastrointestinal: reports: Abdominal Pain (RUQ). denies: Diarrhea, Nausea, Vomiting Genitourinary: reports: No Symptoms Neurological: denies: Change in LOC Pain Intensity: 3 Physical Exam Vital Signs: Vital Signs Temperature 98 F 02/09/17 10:00 Pulse Rate 96 H 02/09/17 10:00 Respiratory Rate 20 02/09/17 10:00 Blood Pressure 128/82 02/09/17 10:00 O2 Sat by Pulse Oximetry (%) 98 02/09/17 06:00 Constitutional: Yes: Calm HENT: Yes: WNL Neck: Yes: Supple Cardiovascular: Yes: Regular Rate and Rhythm Respiratory: Yes: CTA Bilaterally Gastrointestinal: Yes: Soft, Tenderness (Minimal RUQ tenderness), Other (No Drew's sign). No: Distention, Tenderness, Rebound Extremities: Yes: WNL Neurological: Yes: Alert, Oriented Labs: CBC, BMP 02/09/17 03:39 02/09/17 03:39 Imaging - Results Cat Scan: Report Reviewed, Image Reviewed Ultrasound: Report Reviewed, Image Reviewed MRI: Pending Problem List - Problems (1) Acute cholecystitis Code(s): K81.0 - ACUTE CHOLECYSTITIS (2) Non-STEMI (non-ST elevated myocardial infarction) Code(s): I21.4 - NON-ST ELEVATION (NSTEMI) MYOCARDIAL INFARCTION (3) Elevated lipase Code(s): R74.8 - ABNORMAL LEVELS OF OTHER SERUM ENZYMES Assessment/Plan 57 male with acute cholecystitis Elevated lipase Elevated troponins- possible NSTEMI NPO IV fluids Antibiotics MRCP- evaluate for CBD stone GI consult- possible ERCP Cardiology following With NSTEMI, an operation is too high risk Would recommend Interventional Radiology for percutaneous cholecystostomy placement Cholecystectomy 6- 8 weeks after drainage
[2017-02-09 16:59] LABS: INR 1.32 (0.82-1.09); PROTHROMBIN TIME (PATIENT) 14.6 SEC (9.98-11.88)
--- NOTE | 2017-02-09 17:09 | CON.GI ---
Consult Consult Specialty:: Gastroenterology Referred by:: Dr Fox Reason for Consultation:: Abdominal pain - History of Present Illness Chief Complaint: Right subcostal colicky pain History of Present Illness: 57M was seen by my associate Dr Grey to evaluate epigastric pain radiating across the abdomen of 2-3 weeks duration on 02/07/17. He was referred for a CT scan which revealed acute cholecystitis prompting this hospitalization. He tells me that his pain got worse in the ER and became generalized. His troponins are elevated. He denies any cardiac history. His pain has subsided today and he is hungry. He has had an EGD with Dr Grey in 2013 when he was told of acid reflux. Colonoscopy was also advised at that time but he has been reluctant to have it done. - History Source History Provided By: Patient Limitations to Obtaining History: No Limitations - Past Medical History Cardio/Vascular: Yes: Hyperlipdemia Gastrointestinal: Yes: Gastritis, GERD, Other (right inguinal hernia) Hepatobiliary: Yes: Cholecystitis (sludge), Other (fatty liver, left lobe hemangioma) - Past Surgical History Past Surgical History: Yes: None - Alcohol/Substance Use Hx Alcohol Use: No History of Substance Use: reports: None - Smoking History Smoking history: Never smoked - Social History Usual Living Arrangement: With Spouse ADL: Independent Occupation: school cafeteria cook Place of : [facility] [facility] History of Recent Travel: No Home Medications - Allergies Allergies/Adverse Reactions: Allergies Allergy/AdvReac Type Severity Reaction Status Date / Time No Known Allergies Allergy Verified 02/08/17 16:36 - Home Medications Home Medications: Ambulatory Orders NK [No Known Home Medication] 02/08/17 Family Disease History - Family Disease History Family Disease History: Other: Father (parkinsonism), Mother (parkinsonism) Other Family History: GM had a GI cancer Review of Systems - Review of Systems Constitutional: reports: No Symptoms Eyes: reports: No Symptoms HENT: reports: No Symptoms Neck: reports: No Symptoms Cardiovascular: reports: No Symptoms Respiratory: reports: No Symptoms Gastrointestinal: reports: Abdominal Pain Genitourinary: reports: No Symptoms Musculoskeletal: reports: No Symptoms Physical Exam-GI Vital Signs: Vital Signs Temperature 96.7 F L 02/09/17 14:56 Pulse Rate 80 02/09/17 14:56 Respiratory Rate 19 02/09/17 14:52 Blood Pressure 96/50 02/09/17 14:56 O2 Sat by Pulse Oximetry (%) 98 02/09/17 06:00 Current Medications Generic Name Dose Route Start Last Admin Trade Name Dario PRN Reason Stop Dose Admin Acetaminophen 650 mg 02/08/17 21:42 Tylenol - PO Q6H PRN FEVER OR PAIN Heparin Sodium (Porcine) 1,000 unit 02/08/17 20:06 Heparin - IVPUSH PRN PRN Heparin Heparin Sodium (Porcine) 5,000 unit 02/08/17 20:06 02/09/17 13:28 Heparin - IVPUSH 5,000 unit PRN PRN Administration Heparin Heparin Sodium/Dextrose 500 mls @ 20 mls/hr 02/08/17 20:15 02/09/17 15:53 Heparin Infusion - IVPB 26 mls/hr TITR THEODORA Administration Protocol 1,000 UNITS/HR Nitroglycerin 0.4 mg 02/08/17 19:32 02/08/17 19:47 Nitrostat - SL 0.4 mg Q5M PRN Administration FOR CHEST PAIN Piperacillin Sod/Tazobactam Sod 4.5 gm 02/08/17 21:15 02/09/17 17:10 Zosyn 4.5gm Ivpb (Pre-Docked) IVPB 4.5 gm Q8H-IV THEODORA Administration Senna 2 tab 02/08/17 21:42 Senna - PO HS PRN CONSTIPATION CBC,CMP WBC 12.2 K/mm3 (4.0-10.0) H 02/09/17 03:39 RBC 4.61 M/mm3 (4.00-5.60) 02/09/17 03:39 Hgb 12.8 GM/dL (11.7-16.9) 02/09/17 03:39 Hct 38.6 % (35.4-49) 02/09/17 03:39 MCV 83.8 fl (80-96) 02/09/17 03:39 MCHC 33.1 g/dl (32.0-35.9) 02/09/17 03:39 RDW 13.3 % (11.9-15.9) 02/09/17 03:39 Plt Count 193 K/MM3 (134-434) 02/09/17 03:39 MPV 9.0 fl (7.5-11.1) 02/09/17 03:39 Neutrophils % 79.4 % (42.8-82.8) 02/09/17 03:39 Lymphocytes % 9.1 % (8-40) D 02/09/17 03:39 Monocytes % 10.9 % (3.8-10.2) H 02/09/17 03:39 Eosinophils % 0.4 % (0-4.5) D 02/09/17 03:39 Basophils % 0.2 % (0-2.0) 02/09/17 03:39 ESR 78 mm/hr (0-20) H 02/09/17 03:39 Sodium 141 mmol/L (136-145) 02/09/17 03:39 Potassium 4.1 mmol/L (3.5-5.1) 02/09/17 03:39 Chloride 105 mmol/L (98-107) 02/09/17 03:39 Carbon Dioxide 27 mmol/L (21-32) 02/09/17 03:39 Anion Gap 9 (8-16) 02/09/17 03:39 BUN 19 mg/dL (7-18) H 02/09/17 03:39 Creatinine 1.1 mg/dL (0.7-1.3) 02/09/17 03:39 Creat Clearance w eGFR > 60 (>60) 02/09/17 03:39 Random Glucose 117 mg/dL (74-106) H 02/09/17 03:39 Calcium 8.5 mg/dL (8.5-10.1) 02/09/17 03:39 Total Bilirubin 0.6 mg/dL (0.2-1.0) 02/09/17 03:39 Direct Bilirubin 0.3 mg/dL (0.0-0.2) H 02/08/17 17:35 AST 56 U/L (15-37) H D 02/09/17 03:39 ALT 63 U/L (12-78) 02/09/17 03:39 Alkaline Phosphatase 67 U/L (45-117) 02/09/17 03:39 Creatine Kinase 133 IU/L (39-308) 02/09/17 03:35 Creatine Kinase Index 3.4 % (0.0-5.0) 02/08/17 17:35 CK-MB (CK-2) 8.226 ng/ml (0.5-3.6) H 02/08/17 17:35 CK-MB (CK-2) Rel Index Cancelled 02/08/17 17:35 Troponin I 2.87 ng/ml (0.00-0.05) H* D 02/09/17 03:35 C-Reactive Protein 14.9 MG/DL (0.00-0.3) H 02/09/17 03:39 Total Protein 5.8 g/dl (6.4-8.2) L 02/09/17 03:39 Albumin 2.5 g/dl (3.4-5.0) L 02/09/17 03:39 Triglycerides Cancelled 02/09/17 10:30 Cholesterol Cancelled 02/09/17 10:30 Total LDL Cholesterol Cancelled 02/09/17 10:30 HDL Cholesterol Cancelled 02/09/17 10:30 Total Amylase 65 U/L (25-115) 02/09/17 03:39 Lipase 866 U/L (73-393) H 02/09/17 03:39 Constitutional: Yes: No Distress Eyes: Yes: Conjunctiva Clear HENT: Yes: Normocephalic Neck: Yes: Supple Cardiovascular: Yes: Regular Rate and Rhythm Respiratory: Yes: CTA Bilaterally Gastrointestinal Inspection: Yes: Distention, Hernia (nontender right inguinal hernia) ...Auscultate: Yes: Normoactive Bowel Sounds ...Palpate: Yes: Soft, Other (nontender) ...Rectal Exam: Yes: Guaiac Negative (no rectal mass, 1+ prostate) Edema: No Peripheral Pulses WNL: Yes Labs: CBC, BMP 02/09/17 03:39 02/09/17 03:39 Laboratory Tests 02/08/17 02/08/17 02/09/17 17:35 20:53 03:35 WBC 13.9 H Hgb 14.1 D Total Bilirubin AST ALT Alkaline Phosphatase Troponin I 4.51 H* 2.87 H* D C-Reactive Protein Total Amylase 67 Lipase 841 H 02/09/17 02/09/17 03:39 03:39 WBC 12.2 H Hgb 12.8 Total Bilirubin 0.6 AST 56 H D ALT 63 Alkaline Phosphatase 67 Troponin I C-Reactive Protein 14.9 H Total Amylase 65 Lipase 866 H Imaging - Results Cat Scan: Image Reviewed (GB sludge, thickened GB wall left liver lobe hemangioma, fatty liver normal ducts) Ultrasound: Image Reviewed (GB sludge, thickened GB wall left liver lobe hemangioma, fatty liver) Problem List - Problems (1) Fatty liver Code(s): K76.0 - FATTY (CHANGE OF) LIVER, NOT ELSEWHERE CLASSIFIED (2) Liver hemangioma Code(s): D18.03 - HEMANGIOMA OF INTRA-ABDOMINAL STRUCTURES (3) Sludge in gallbladder Code(s): K82.8 - OTHER SPECIFIED DISEASES OF GALLBLADDER (4) Right inguinal hernia Code(s): K40.90 - UNIL INGUINAL HERNIA, W/O OBST OR GANGR, NOT SPCF RECUR (5) GERD (gastroesophageal reflux disease) Code(s): K21.9 - GASTRO-ESOPHAGEAL REFLUX DISEASE WITHOUT ESOPHAGITIS Assessment/Plan Picture is consistent with acute acalculous cholescystitis. His elevated transaminases are more likely due to HINTON than CBD sludge passage. Does not appear to have biliary pancreatitis. Will get MRI with contrast to confirm hemangioma and to exclude CBD stones given the amylase rise. Anticipate cholecystectomy if/when cardiologically cleared. Will need colonoscopy and elective RIH in tj future.
--- NOTE | 2017-02-09 17:31 | CONS ---
DATE OF CONSULTATION: DATE OF DICTATION: 02/09/2017 INFECTIOUS DISEASE CONSULTATION REQUESTING PHYSICIAN: Corey Fox M.D. CONSULTING PHYSICIAN: Patricia Alexander M.D. HISTORY OF PRESENT ILLNESS: I spoke with Dr. Fox last night about this patient who he saw in the emergency room when he was admitted. This is a 57-year-old man, history of hiatal hernia in the past, takes Nexium as an outpatient. Since that Easter time has been struggling with some intermittent abdominal pain which he attributed to his hiatal hernia. He had some mild nausea, he associated it with meals. He had a band-like pain across his right upper quadrant. He really cut back on what he was eating, as he had no appetite, and it seemed to exacerbate his symptoms. He had no nausea, vomiting, or diarrhea. This week, the pain worsened. He started having fever. For the last 2 days he did not go to work, and he apparently was quite delirious. He was seen by GI as an outpatient. He had a CAT scan of his abdomen and pelvis done that was felt to be consistent with cholecystitis, and he came to the emergency room. While in the ER, he had troponins drawn which were elevated at 5, so he was admitted to telemetry for further evaluation by cardiology. He has no family history of heart disease. He is a nonsmoker. He denies any history of chest pain . He denies shortness of breath. He is quite active. 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 This morning he reports that he is not confused at all. Fevers have resolved, and his abdominal pain is better. His is at his bedside, and she says he has been delirious for the last 2 days. PAST MEDICAL HISTORY: Notable for hiatal hernia. He has had no surgery. FAMILY HISTORY: There is no history of coronary artery disease. SOCIAL HISTORY: He is a high school guidance counselor. There is no history of any cigarette, alcohol, or illicit drug use. No recent travel. REVIEW OF SYSTEMS: As per HPI. He has no cough. He has had this nausea. He is not sure if he has lost weight. He denies any hematuria or dysuria. He takes Nexium at home. He has no known drug allergies. PHYSICAL EXAMINATION: General: He is awake and alert. Vital signs: Temperature 98, T-max 99.1. He reports fever over 103 at home. HEENT: Normocephalic. Eyes are anicteric. Neck: Supple. Lungs: Clear to auscultation. Heart: Regular rate and rhythm. Abdomen: Soft. He currently has no abdominal pain. He has bowel sounds. Extremities: Without edema. LABORATORY: White count on admission was 13.9, today is 12.2, hemoglobin 12.8, platelets 193. BUN and creatinine are 19 and 1.1. His CRP is 14. Sedimentation rate is 78. Troponins on admission were 4.98, this morning at 2.87. Lipase is 866. AST is 56, ALT of 63, alkaline phosphatase is 67. Urinalysis has 1 white cell. Blood cultures are pending. He had a CAT scan that was consistent with cholecystitis and a sonogram as well done last night that was consistent with acute cholecystitis as well as diffuse fatty liver. IMPRESSION: In summary, this is a 57-year-old man admitted with acute cholecystitis. Question of possible non-ST segment myocardial infarction with positive troponins. He is currently on telemetry. He is being evaluated by cardiology and surgery. Further recommendations to follow. He appears improved on antibiotics. I would continue his Zosyn, which was started last night after discussion with Dr. Fox. PATRICIA ALEXANDER M.D. [id number]
[2017-02-10] MEDS: PIPERACILLIN/TAZOB 4.5 GM/100 ML PRE-DOCKED IVPB SCH ×3 (01:35→17:37)
--- NOTE | 2017-02-10 07:40 | PN ---
Progress Note, Physician Chief Complaint: NSTEMI History of Present Illness: no abd pain at present; no cp, sob, palpitations no cigs - Current Medication List Current Medications: Active Medications Acetaminophen (Tylenol -) 650 mg PO Q6H PRN PRN Reason: FEVER OR PAIN Heparin Sodium (Porcine) (Heparin -) 1,000 unit IVPUSH PRN PRN PRN Reason: Heparin Heparin Sodium (Porcine) (Heparin -) 5,000 unit IVPUSH PRN PRN PRN Reason: Heparin Last Admin: 02/09/17 23:26 Dose: 5,000 unit Heparin Sodium/Dextrose (Heparin Infusion -) 500 mls @ 20 mls/hr IVPB TITR THEODORA ; 1,000 UNITS/HR PRN Reason: Protocol Last Admin: 02/09/17 23:26 Dose: 29 mls/hr Nitroglycerin (Nitrostat -) 0.4 mg SL Q5M PRN PRN Reason: FOR CHEST PAIN Last Admin: 02/08/17 19:47 Dose: 0.4 mg Piperacillin Sod/Tazobactam Sod (Zosyn 4.5gm Ivpb (Pre-Docked)) 4.5 gm IVPB Q8H -IV THEODORA Last Admin: 02/10/17 01:35 Dose: 4.5 gm Senna (Senna -) 2 tab PO HS PRN PRN Reason: CONSTIPATION - Objective Vital Signs: Vital Signs Temperature 98.8 F 02/10/17 06:00 Pulse Rate 84 02/10/17 06:00 Respiratory Rate 16 02/10/17 06:00 Blood Pressure 116/71 02/10/17 06:00 O2 Sat by Pulse Oximetry (%) 98 02/09/17 21:00 Constitutional: Yes: No Distress, Calm, Obese Eyes: No: Sclera Icterus HENT: No: Nasal Congestion Cardiovascular: Yes: Regular Rate and Rhythm, S1, S2, Other (PMI non diplaced). No: JVD, Gallop, Murmur Respiratory: Yes: CTA Bilaterally. No: Accessory Muscle Use, Rales, Wheezes Gastrointestinal: Yes: Normal Bowel Sounds, Soft. No: Tenderness Musculoskeletal: Yes: Other (No kyphosis) Extremities: No: Cold Edema: No Integumentary: No: Jaundice Neurological: Yes: Alert, Oriented (x3) Psychiatric: No: Agitated Labs: CBC, BMP 02/09/17 03:39 02/09/17 03:39 INR, PTT INR 1.32 (0.82-1.09) H 02/09/17 16:40 - ....Imaging EKG: Other (tele: NSR) Assessment/Plan Echo 02/21 here: normal LVSF; RWMA tds; nl RV size and overall fxn, apex appears hypo in some views; mild MR/TR; RVSP 30-40; trivial peric eff acute cholecystitis/preop CV eval: -GI input appreciated: likely acute acalculous cholescystitis, does not appear to have biliary pancreatitis -plan for MRI with contrast to confirm hemangioma and to exclude CBD stones given the amylase rise. -surgery input appreciated: high risk for cholecystectomy acutely, rec eval for percutaneous choleystostomy drainage with elective cholectystectomy later -in setting of acute NSTEMi with high troponin peak, pt is high risk for CV complications of surgery -note pt is s/p plavix 300mg x 1 in ER on 02/08 nstemi: -trops elevated to 4.9 on admit, now trending down, 2.8. ECG unremarkable. -NSTEMI (triggered by acute infectious/inflammatory process) more likely than Type II NJ from demand ischemia with troponin of this magnitude -s/p plavix in ER--holding antiplatelets in light of need for invasive treatment of cholecystitis -cont with hep gtt for 48-72 hrs from time of initial positive troponin (no sx onset to guide us in terms of occurrence of NJ onset) -preserved LV fxn on echo, tds for WMAs -no sx's of angina -sbp 90s-100s at times--try lopressor 12.5 TID if bp tolerates -AST/LT mildly elevated, trending down--start statin for plaque stabilization dyslipidemia: -LDL 110, HDL 29 (baseline LDL likely higher, as this is in setting of ACS) -starting atorva 40 for acute plaque stabilization/NSTEMI indication preop CV eval: -high risk clinical indicators (acute NSTEMI) -would be high risk for CV complications of intermediate risk surgery ( choleycstectomy) -would be at acceptable (intermediate) risk of CV complications from low risk procedure (e.g. cholecystostomy drainage)
[2017-02-10 07:58] LABS: BASOPHIL 0.6 % (0-2.0); EOSINOPHIL 1.5 % (0-4.5); MCH 28.4 pg (25.7-33.7); MCHC 33.6 g/dl (32.0-35.9); MEAN CELL VOLUME 84.4 fl (80-96); NEUTROPHILS 71.5 % (42.8-82.8); PLATELET COUNT 230 K/MM3 (134-434); RDW 13.6 % (11.9-15.9); WHITE BLOOD COUNT 7.9 K/mm3 (4.0-10.0)
[2017-02-10 08:42] LABS: ALBUMIN 2.9 g/dl (3.4-5.0); ANION GAP 13 (8-16); CALCIUM 9.4 mg/dL (8.5-10.1); CO2 27 mmol/L (21-32); COCKROFT - GAULT 113.32; CREATININE 1.1 mg/dL (0.7-1.3); GLUCOSE,RANDOM 80 mg/dL (74-106); SGOT/AST 53 U/L (15-37); SGPT/ALT 68 U/L (12-78)
[2017-02-10 08:45] LABS: BILIRUBIN,DIRECT 0.3 mg/dL (0.0-0.2); BILIRUBIN,TOTAL 0.6 mg/dL (0.2-1.0); TOT PROT 6.6 g/dl (6.4-8.2)
[2017-02-10 08:57] LABS: ALK PHOS 65 U/L (45-117); BILIRUBIN,TOTAL 0.6 mg/dL (0.2-1.0); TOT PROT 6.5 g/dl (6.4-8.2)
[2017-02-10] MEDS: METOPROLOL TARTRATE 25 MG TABLET (FP) PO SCH ×3 (08:59→21:37)
[2017-02-10] MEDS: HEPARIN NA (PORCINE) 5,000 UNITS/ML 1ML VIAL IVPUSH PRN ×2 (09:14→21:36)
[2017-02-10] MEDS: HEPARIN INFUSION - 500 ML IVPB SCH ×3 (09:14→21:36)
--- NOTE | 2017-02-10 10:57 | PN ---
Progress Note, Physician Chief Complaint: No current chest or abdominal pain. History of Present Illness: Pt admitted with acute cholecystitis and was found to have high Troponin and NSTEMI. Progreesing well with no current pains and Troponin now at 1. Await MRI and scheduled for GB drainage Sunday off heparin. LDL 115. Seen by Cardiology, ID, GI and Surgeon. - Current Medication List Current Medications: Active Medications Acetaminophen (Tylenol -) 650 mg PO Q6H PRN PRN Reason: FEVER OR PAIN Atorvastatin Calcium (Lipitor -) 40 mg PO HS THEODORA Heparin Sodium (Porcine) (Heparin -) 1,000 unit IVPUSH PRN PRN PRN Reason: Heparin Heparin Sodium (Porcine) (Heparin -) 5,000 unit IVPUSH PRN PRN PRN Reason: Heparin Last Admin: 02/10/17 09:14 Dose: 5,000 unit Heparin Sodium/Dextrose (Heparin Infusion -) 500 mls @ 20 mls/hr IVPB TITR THEODORA ; 1,000 UNITS/HR PRN Reason: Protocol Last Admin: 02/10/17 09:14 Dose: 32 mls/hr Metoprolol Tartrate (Lopressor -) 12.5 mg PO TID THEODORA Last Admin: 02/10/17 08:59 Dose: 12.5 mg Nitroglycerin (Nitrostat -) 0.4 mg SL Q5M PRN PRN Reason: FOR CHEST PAIN Last Admin: 02/08/17 19:47 Dose: 0.4 mg Piperacillin Sod/Tazobactam Sod (Zosyn 4.5gm Ivpb (Pre-Docked)) 4.5 gm IVPB Q8H -IV THEODORA Last Admin: 02/10/17 09:07 Dose: 4.5 gm Senna (Senna -) 2 tab PO HS PRN PRN Reason: CONSTIPATION - Objective Vital Signs: Vital Signs Temperature 98.8 F 02/10/17 06:00 Pulse Rate 84 02/10/17 06:00 Respiratory Rate 16 02/10/17 06:00 Blood Pressure 116/71 02/10/17 06:00 O2 Sat by Pulse Oximetry (%) 98 02/09/17 21:00 Constitutional: Yes: Calm Eyes: Yes: Conjunctiva Clear. No: Sclera Icterus Cardiovascular: Yes: Regular Rate and Rhythm Respiratory: Yes: Regular Gastrointestinal: Yes: Soft, Abdomen, Obese, Tenderness (slight RUQ tenderness on deep palpation) Genitourinary: No: Alvarado Present Edema: No Neurological: Yes: Alert, Oriented Labs: CBC, BMP 02/10/17 05:35 02/10/17 05:35 INR, PTT INR 1.32 (0.82-1.09) H 02/09/17 16:40 Problem List - Problems (1) Non-STEMI (non-ST elevated myocardial infarction) Assessment/Plan: Troponin down to 1. Seen by Cardiology. Code(s): I21.4 - NON-ST ELEVATION (NSTEMI) MYOCARDIAL INFARCTION (2) Abdominal pain Assessment/Plan: Only minimal on RUQ palpation. Code(s): R10.9 - UNSPECIFIED ABDOMINAL PAIN (3) Acute cholecystitis Assessment/Plan: Await MRI; For GB drainage Sunday. Code(s): K81.0 - ACUTE CHOLECYSTITIS (4) Obesity Code(s): E66.9 - OBESITY, UNSPECIFIED (5) Hyperlipidemia Assessment/Plan: LDL 115. Code(s): E78.5 - HYPERLIPIDEMIA, UNSPECIFIED
--- NOTE | 2017-02-10 11:11 | PN ---
Progress Note, Physician Chief Complaint: ID Rabia Feels well just "twinge of pain" - Current Medication List Current Medications: Active Medications Acetaminophen (Tylenol -) 650 mg PO Q6H PRN PRN Reason: FEVER OR PAIN Atorvastatin Calcium (Lipitor -) 40 mg PO HS THEODORA Heparin Sodium (Porcine) (Heparin -) 1,000 unit IVPUSH PRN PRN PRN Reason: Heparin Heparin Sodium (Porcine) (Heparin -) 5,000 unit IVPUSH PRN PRN PRN Reason: Heparin Last Admin: 02/10/17 09:14 Dose: 5,000 unit Heparin Sodium/Dextrose (Heparin Infusion -) 500 mls @ 20 mls/hr IVPB TITR THEODORA ; 1,000 UNITS/HR PRN Reason: Protocol Last Admin: 02/10/17 09:14 Dose: 32 mls/hr Metoprolol Tartrate (Lopressor -) 12.5 mg PO TID THEODORA Last Admin: 02/10/17 08:59 Dose: 12.5 mg Nitroglycerin (Nitrostat -) 0.4 mg SL Q5M PRN PRN Reason: FOR CHEST PAIN Last Admin: 02/08/17 19:47 Dose: 0.4 mg Piperacillin Sod/Tazobactam Sod (Zosyn 4.5gm Ivpb (Pre-Docked)) 4.5 gm IVPB Q8H -IV THEODORA Last Admin: 02/10/17 09:07 Dose: 4.5 gm Senna (Senna -) 2 tab PO HS PRN PRN Reason: CONSTIPATION - Objective Vital Signs: Vital Signs Temperature 98.8 F 02/10/17 06:00 Pulse Rate 84 02/10/17 06:00 Respiratory Rate 16 02/10/17 06:00 Blood Pressure 116/71 02/10/17 06:00 O2 Sat by Pulse Oximetry (%) 98 02/09/17 21:00 Cardiovascular: Yes: S1, S2, Varicosities Respiratory: Yes: WNL, CTA Bilaterally Gastrointestinal: Yes: Soft, Tenderness, Other (RUQ pain) Labs: CBC, BMP 02/10/17 05:35 02/10/17 05:35 INR, PTT INR 1.32 (0.82-1.09) H 02/09/17 16:40 Assessment/Plan Microbiology 02/08/17 22:00 Blood - Peripheral Venous Blood Culture - Preliminary NO GROWTH OBTAINED AFTER 24 HOURS, INCUBATION TO CONTINUE FOR 4 DAYS. 02/08/17 22:00 Blood - Peripheral Venous Blood Culture - Preliminary NO GROWTH OBTAINED AFTER 24 HOURS, INCUBATION TO CONTINUE FOR 4 DAYS. Laboratory Tests 02/09/17 02/10/17 02/10/17 03:39 05:35 05:35 WBC 12.2 H 7.9 D Hgb 14.0 Hct 41.6 Plt Count 230 BUN 16 Creatinine 1.1 Direct Bilirubin AST ALT Alkaline Phosphatase C-Reactive Protein 02/10/17 02/10/17 05:35 05:35 WBC Hgb Hct Plt Count BUN Creatinine Direct Bilirubin 0.3 H AST 55 H ALT 65 Alkaline Phosphatase 67 C-Reactive Protein 11.0 H D Assessment Acute cholecystitis with NSTSMI Elevated troponin Plan Conservative management Decompression of GB Antibiotic as ordered Ori POOLE
[2017-02-10 12:53] LABS: ERYTHROCYTE SEDIMENTATION RATE 79 mm/hr (0-20)
--- NOTE | 2017-02-10 15:28 | PN ---
GI Progress Note Subjective: GI F/U PT FEELS MUCH BETTER TODAY HE APPEARS MUCH BETTER I HAD SEEN HIM IN OFFICE 3 DAYS AGO LESS RUQ PAIN/ EPIGASTRIC PAIN NO N/V/F/C/S PT STATES THAT HE HAD A SILENT KS ON ABX - Objective Vital Signs: Vital Signs Temperature 99.4 F 02/10/17 15:15 Pulse Rate 86 02/10/17 15:15 Respiratory Rate 18 02/10/17 15:15 Blood Pressure 127/86 02/10/17 15:15 O2 Sat by Pulse Oximetry (%) 100 02/10/17 09:00 Constitutional: Well Nourished, No Distress, Calm Eyes: Yes: WNL HENT: Yes: WNL Neck: Yes: WNL (+BS/FIRM/ MIN TENDER IN RUQ NO REBOUND OR GUARDING) Labs: CBC, BMP 02/10/17 05:35 02/10/17 05:35 INR, PTT INR 1.32 (0.82-1.09) H 02/09/17 16:40 Assessment/Plan 57M--NON-COMPLIANT WITH MEDICAL CARE C/O FEW DAYS OF SEVERE ABD PAIN AND TEMP TO 103 REFUSED HOSPITALIZATION INITIALLY WBC WAS 16K AND CT C/W A.C. NOW CLIN IMPROVED ON ABX PT WITH RECENT ACUTE KS AND NOT CANDIDATE FOR SURGICAL RESECTION AT THIS TIME FOR POSSIBLE CHOLECYSTOSTOMY TUBE DRAINAGE NOW STABLE , AFEB, AND WBC DOWN ON ABX FOR SURGICAL CARE/DRAIN PT IN AGREEMENT WITH PHONG BRITO MD
--- NOTE | 2017-02-10 16:25 | EKG ---
Test Reason : Blood Pressure : / mmHG Vent. Rate : 072 BPM Atrial Rate : 072 BPM P-R Int : 140 ms QRS Dur : 080 ms QT Int : 386 ms P-R-T Axes : 052 -03 040 degrees QTc Int : 422 ms NORMAL SINUS RHYTHM CANNOT RULE OUT INFERIOR INFARCT (CITED ON OR BEFORE 08-FEB-2017) ABNORMAL ECG WHEN COMPARED WITH ECG OF 09-FEB-2017 10:45, NONSPECIFIC T WAVE ABNORMALITY HAS REPLACED INVERTED T WAVES IN INFERIOR LEADS Confirmed by CAROL GERBER MD ([id number]) on 02/10/2017 4:24:39 PM Referred By: Augie MCARTHUR Confirmed By:CAROL GERBER MD
[2017-02-10] MEDS: ATORVASTATIN CA 40 MG TABLET (FP) PO SCH (21:37)
[2017-02-11] MEDS: PIPERACILLIN/TAZOB 4.5 GM/100 ML PRE-DOCKED IVPB SCH ×3 (04:00→17:08)
[2017-02-11] MEDS: METOPROLOL TARTRATE 25 MG TABLET (FP) PO SCH ×2 (05:12→21:31)
[2017-02-11 08:06] LABS: BASOPHIL 0.7 % (0-2.0); EOSINOPHIL 1.9 % (0-4.5); MCH 28.7 pg (25.7-33.7); MCHC 34.4 g/dl (32.0-35.9); MEAN CELL VOLUME 83.5 fl (80-96); MEAN PLT VOLUME 8.5 fl (7.5-11.1); NEUTROPHILS 67.5 % (42.8-82.8); PLATELET COUNT 222 K/MM3 (134-434); RDW 12.9 % (11.9-15.9)
[2017-02-11] MEDS: HEPARIN INFUSION - 500 ML IVPB SCH (09:15)
--- NOTE | 2017-02-11 10:10 | PN ---
Progress Note, Physician Chief Complaint: NSTEMI History of Present Illness: no cp, sob, palpitations; mild RUQ pain when takes deep breath - Current Medication List Current Medications: Active Medications Acetaminophen (Tylenol -) 650 mg PO Q6H PRN PRN Reason: FEVER OR PAIN Atorvastatin Calcium (Lipitor -) 40 mg PO HS [facility] Last Admin: 02/10/17 21:37 Dose: 40 mg Heparin Sodium (Porcine) (Heparin -) 1,000 unit IVPUSH PRN PRN PRN Reason: Heparin Last Admin: 02/11/17 09:15 Dose: 1,000 unit Heparin Sodium (Porcine) (Heparin -) 5,000 unit IVPUSH PRN PRN PRN Reason: Heparin Last Admin: 02/10/17 21:36 Dose: 5,000 unit Heparin Sodium/Dextrose (Heparin Infusion -) 500 mls @ 20 mls/hr IVPB TITR [facility] ; 1,000 UNITS/HR PRN Reason: Protocol Last Admin: 02/11/17 09:15 Dose: 37 mls/hr Metoprolol Tartrate (Lopressor -) 12.5 mg PO TID [facility] Last Admin: 02/11/17 05:12 Dose: 12.5 mg Nitroglycerin (Nitrostat -) 0.4 mg SL Q5M PRN PRN Reason: FOR CHEST PAIN Last Admin: 02/08/17 19:47 Dose: 0.4 mg Piperacillin Sod/Tazobactam Sod (Zosyn 4.5gm Ivpb (Pre-Docked)) 4.5 gm IVPB Q8H -IV [facility] Last Admin: 02/11/17 04:00 Dose: 4.5 gm Senna (Senna -) 2 tab PO HS PRN PRN Reason: CONSTIPATION - Objective Vital Signs: Vital Signs Temperature 98.4 F 02/11/17 06:00 Pulse Rate 79 02/11/17 06:00 Respiratory Rate 18 02/11/17 06:00 Blood Pressure 118/86 02/11/17 06:00 O2 Sat by Pulse Oximetry (%) 95 02/10/17 20:57 Constitutional: Yes: No Distress, Calm, Obese Cardiovascular: Yes: Regular Rate and Rhythm, S1, S2. No: Gallop, Murmur Respiratory: Yes: Regular, CTA Bilaterally. No: Accessory Muscle Use, Rales, Wheezes Extremities: No: Cold Edema: No Neurological: Yes: Alert, Oriented Psychiatric: No: Agitated Labs: CBC, BMP 02/11/17 05:35 02/10/17 05:35 INR, PTT INR 1.32 (0.82-1.09) H 02/09/17 16:40 - ....Imaging EKG: Other (tele: NSR) Assessment/Plan Echo 02/21 here: normal LVSF; RWMA tds; nl RV size and overall fxn, apex appears hypo in some views; mild MR/TR; RVSP 30-40; trivial peric eff acute cholecystitis/preop CV eval: -GI input appreciated: likely acute acalculous cholescystitis, does not appear to have biliary pancreatitis -plan for MRI with contrast to confirm hemangioma and to exclude CBD stones given the amylase rise. -surgery input appreciated: high risk for cholecystectomy acutely, rec eval for percutaneous choleystostomy drainage with elective cholectystectomy later -scheduled for cholecystostomy tomorrow -in setting of acute NSTEMi with high troponin peak, pt is high risk for CV complications of surgery -note pt received plavix 300mg x 1 in ER on 02/08 nstemi: -trops elevated to 4.9 on admit, now trending down, 2.8. ECG unremarkable. -NSTEMI (triggered by acute infectious/inflammatory process) more likely than Type II [place] from demand ischemia with troponin of this magnitude -preserved LV fxn on echo, tds for WMAs -remains asymptomatic -holding antiplatelets in light of need for invasive treatment of cholecystitis -d/c UFH (s/p 72 hrs treatment) -tolerating low dose bb -cont statin -will need nuclear stress test risk-stratification prior to delayed cholecystectomy: if low-risk ischemia, plan cholecystectomy 4-6 wks per surgery ; if high-risk anatomy, will need cath and delay surgery to complete minimum course of DAPT, depending on input from interventional cardiology dyslipidemia: -LDL 110, HDL 29 (baseline LDL likely higher, as this is in setting of ACS) -starting atorva 40 for acute plaque stabilization/NSTEMI indication preop CV eval: -high risk clinical indicators (acute NSTEMI) -would be high risk for CV complications of intermediate risk surgery ( choleycstectomy) -he is at acceptable (intermediate) risk of CV complications from low risk procedure (e.g. cholecystostomy drainage)
--- NOTE | 2017-02-11 13:16 | PN ---
Progress Note, Physician Chief Complaint: Worried about his AM procedure for Gall Bladder catheter placement. No SOB or chest pain. - Current Medication List Current Medications: Active Medications Acetaminophen (Tylenol -) 650 mg PO Q6H PRN PRN Reason: FEVER OR PAIN Atorvastatin Calcium (Lipitor -) 40 mg PO HS [facility] Last Admin: 02/10/17 21:37 Dose: 40 mg Heparin Sodium (Porcine) (Heparin -) 5,000 unit SQ BID [facility] Metoprolol Tartrate (Lopressor -) 25 mg PO BID [facility] Nitroglycerin (Nitrostat -) 0.4 mg SL Q5M PRN PRN Reason: FOR CHEST PAIN Last Admin: 02/08/17 19:47 Dose: 0.4 mg Piperacillin Sod/Tazobactam Sod (Zosyn 4.5gm Ivpb (Pre-Docked)) 4.5 gm IVPB Q8H -IV [facility] Last Admin: 02/11/17 10:54 Dose: 4.5 gm Senna (Senna -) 2 tab PO HS PRN PRN Reason: CONSTIPATION - Objective Vital Signs: Vital Signs Temperature 98.4 F 02/11/17 06:00 Pulse Rate 79 02/11/17 06:00 Respiratory Rate 18 02/11/17 06:00 Blood Pressure 118/86 02/11/17 06:00 O2 Sat by Pulse Oximetry (%) 95 02/10/17 20:57 Constitutional: Yes: Anxious Eyes: Yes: Conjunctiva Clear Cardiovascular: Yes: Regular Rate and Rhythm. No: Murmur Respiratory: Yes: Regular Gastrointestinal: Yes: Soft, Hyperactive Bowel Sounds (some loose BM) Genitourinary: No: Alvarado Present Edema: No Neurological: Yes: Alert, Oriented Labs: CBC, BMP 02/11/17 05:35 02/10/17 05:35 INR, PTT INR 1.32 (0.82-1.09) H 02/09/17 16:40 Problem List - Problems (1) Non-STEMI (non-ST elevated myocardial infarction) Assessment/Plan: Troponin down to .28. No new chest pain. Code(s): I21.4 - NON-ST ELEVATION (NSTEMI) MYOCARDIAL INFARCTION (2) Abdominal pain Assessment/Plan: Only mild RUQ discomfort on RUQ palpation Code(s): R10.9 - UNSPECIFIED ABDOMINAL PAIN (3) Acute cholecystitis Assessment/Plan: High CRP but WBC down to 6,ooo. On Zosyn Iv. For GB catheter placement AM Code(s): K81.0 - ACUTE CHOLECYSTITIS (4) Obesity Code(s): E66.9 - OBESITY, UNSPECIFIED (5) Hyperlipidemia Assessment/Plan: LDL 115 On Atorvastatin 40mg daily. Code(s): E78.5 - HYPERLIPIDEMIA, UNSPECIFIED
[2017-02-11] MEDS ORDERED: LORazepam 1 MG TABLET PO ONE (13:18)
[2017-02-11] MEDS: HEPARIN NA (PORCINE) 5,000 UNITS/ML 1ML VIAL SQ SCH (21:30)
[2017-02-11] MEDS: ATORVASTATIN CA 40 MG TABLET (FP) PO SCH (21:31)
[2017-02-12] MEDS: PIPERACILLIN/TAZOB 4.5 GM/100 ML PRE-DOCKED IVPB SCH ×3 (02:18→17:20)
[2017-02-12 07:36] LABS: BASOPHIL 0.7 % (0-2.0); EOSINOPHIL 2.6 % (0-4.5); MCH 28.3 pg (25.7-33.7); MCHC 34.1 g/dl (32.0-35.9); MEAN PLT VOLUME 8.3 fl (7.5-11.1); NEUTROPHILS 63.9 % (42.8-82.8); PLATELET COUNT 254 K/MM3 (134-434); RDW 12.8 % (11.9-15.9); WHITE BLOOD COUNT 5.7 K/mm3 (4.0-10.0)
[2017-02-12] MEDS: METOPROLOL TARTRATE 25 MG TABLET (FP) PO SCH (10:00)
--- NOTE | 2017-02-12 10:11 | PN ---
Progress Note, Physician Chief Complaint: Anxious about testing today but no chest pain or nausea. History of Present Illness: Patient with Acute NSTEMI and Acute Cholecystitis is improved but still has some RUQ tenderness on palpation. No nausea or SOB. Heparin SQ last dose 10PM last nite and not on Plavix since admission dose X1. Afebrile and WBC now under 6,000. - Current Medication List Current Medications: Active Medications Acetaminophen (Tylenol -) 650 mg PO Q6H PRN PRN Reason: FEVER OR PAIN Atorvastatin Calcium (Lipitor -) 40 mg PO HS [facility] Last Admin: 02/11/17 21:31 Dose: 40 mg Heparin Sodium (Porcine) (Heparin -) 5,000 unit SQ BID [facility] Last Admin: 02/11/17 21:30 Dose: 5,000 unit Lorazepam (Ativan -) 1 mg PO ONCE ONE Stop: 02/12/17 08:01 Metoprolol Tartrate (Lopressor -) 25 mg PO BID [facility] Last Admin: 02/11/17 21:31 Dose: 25 mg Nitroglycerin (Nitrostat -) 0.4 mg SL Q5M PRN PRN Reason: FOR CHEST PAIN Last Admin: 02/08/17 19:47 Dose: 0.4 mg Piperacillin Sod/Tazobactam Sod (Zosyn 4.5gm Ivpb (Pre-Docked)) 4.5 gm IVPB Q8H -IV [facility] Last Admin: 02/12/17 09:23 Dose: 4.5 gm Senna (Senna -) 2 tab PO HS PRN PRN Reason: CONSTIPATION - Objective Vital Signs: Vital Signs Temperature 98.1 F 02/12/17 10:00 Pulse Rate 70 02/12/17 10:00 Respiratory Rate 18 02/12/17 10:00 Blood Pressure 132/79 02/12/17 10:00 O2 Sat by Pulse Oximetry (%) 95 02/11/17 21:00 Constitutional: Yes: Anxious Eyes: No: Sclera Icterus Cardiovascular: Yes: Regular Rate and Rhythm Respiratory: Yes: Regular Gastrointestinal: Yes: Soft, Abdomen, Obese, Hyperactive Bowel Sounds, Tenderness (RUQ on palpation.) Edema: No Neurological: Yes: Alert, Oriented Labs: CBC, BMP 02/12/17 05:35 02/10/17 05:35 INR, PTT INR 1.35 (0.82-1.09) H 02/12/17 05:35 Problem List - Problems (1) Non-STEMI (non-ST elevated myocardial infarction) Assessment/Plan: Stable with troponin down to .28 yesterday; followed by Cardiology Code(s): I21.4 - NON-ST ELEVATION (NSTEMI) MYOCARDIAL INFARCTION (2) Abdominal pain Assessment/Plan: On RUQ palpation Code(s): R10.9 - UNSPECIFIED ABDOMINAL PAIN (3) Acute cholecystitis Assessment/Plan: Confirmed by MRCP Code(s): K81.0 - ACUTE CHOLECYSTITIS (4) Obesity Code(s): E66.9 - OBESITY, UNSPECIFIED (5) Hyperlipidemia Assessment/Plan: On Rx. Code(s): E78.5 - HYPERLIPIDEMIA, UNSPECIFIED
--- NOTE | 2017-02-12 10:23 | PN ---
Progress Note (short form) - Note Progress Note: an occasional twinge of pain RUQ otherwise fells well no chest pain Vital Signs Period Temp Pulse Resp BP Sys/Bernal Pulse Ox Last 24 Hr 98.1 F-99.9 F 70-87 16-20 116-143/65-95 95-100 lungs clear cor-rrr abd soft,nt no RUQ pain ext no edema CBC, BMP 02/12/17 05:35 02/10/17 05:35 Microbiology 02/08/17 22:00 Blood - Peripheral Venous Blood Culture - Preliminary NO GROWTH OBTAINED AFTER 72 HOURS, INCUBATION TO CONTINUE FOR 2 DAYS. 02/08/17 22:00 Blood - Peripheral Venous Blood Culture - Preliminary NO GROWTH OBTAINED AFTER 72 HOURS, INCUBATION TO CONTINUE FOR 2 DAYS. a/p acute cholycystitis- for choycystotomy tube today continue zosyn NSTEMI- per cardiology Problem List - Problems (1) Acute cholecystitis Code(s): K81.0 - ACUTE CHOLECYSTITIS (2) Non-STEMI (non-ST elevated myocardial infarction) Code(s): I21.4 - NON-ST ELEVATION (NSTEMI) MYOCARDIAL INFARCTION
[2017-02-12] MEDS ORDERED: LORazepam 1 MG TABLET PO SCH (10:30)
--- NOTE | 2017-02-12 11:13 | PN ---
Progress Note, Physician Chief Complaint: NTEMI History of Present Illness: no cp or sob incl walking halls no palpit no syncope no abd pain - Current Medication List Current Medications: Active Medications Acetaminophen (Tylenol -) 650 mg PO Q6H PRN PRN Reason: FEVER OR PAIN Atorvastatin Calcium (Lipitor -) 40 mg PO HS [facility] Last Admin: 02/11/17 21:31 Dose: 40 mg Heparin Sodium (Porcine) (Heparin -) 5,000 unit SQ BID [facility] Last Admin: 02/11/17 21:30 Dose: 5,000 unit Lorazepam (Ativan -) 1 mg PO ONCE [facility] Stop: 02/12/17 16:00 Last Admin: 02/12/17 11:00 Dose: 1 mg Metoprolol Tartrate (Lopressor -) 25 mg PO BID [facility] Last Admin: 02/12/17 10:00 Dose: 25 mg Nitroglycerin (Nitrostat -) 0.4 mg SL Q5M PRN PRN Reason: FOR CHEST PAIN Last Admin: 02/08/17 19:47 Dose: 0.4 mg Piperacillin Sod/Tazobactam Sod (Zosyn 4.5gm Ivpb (Pre-Docked)) 4.5 gm IVPB Q8H -IV [facility] Last Admin: 02/12/17 09:23 Dose: 4.5 gm Senna (Senna -) 2 tab PO HS PRN PRN Reason: CONSTIPATION - Objective Vital Signs: Vital Signs Temperature 98.1 F 02/12/17 10:00 Pulse Rate 70 02/12/17 10:00 Respiratory Rate 18 02/12/17 10:00 Blood Pressure 132/79 02/12/17 10:00 O2 Sat by Pulse Oximetry (%) 95 02/11/17 21:00 Constitutional: Yes: No Distress, Calm, Obese Cardiovascular: Yes: Regular Rate and Rhythm, S1, S2. No: Gallop, Murmur Respiratory: Yes: Regular, CTA Bilaterally. No: Accessory Muscle Use, Rales, Wheezes Extremities: No: Cold Edema: No Neurological: Yes: Alert, Oriented Psychiatric: No: Agitated Labs: CBC, BMP 02/12/17 05:35 02/10/17 05:35 INR, PTT INR 1.35 (0.82-1.09) H 02/12/17 05:35 - ....Imaging EKG: Other (tele: NSR) Assessment/Plan Echo 02/21 here: normal LVSF; RWMA tds; nl RV size and overall fxn, apex appears hypo in some views; mild MR/TR; RVSP 30-40; trivial peric eff acute cholecystitis/preop CV eval: -GI input appreciated: likely acute acalculous cholescystitis, does not appear to have biliary pancreatitis -plan for MRI with contrast to confirm hemangioma and to exclude CBD stones given the amylase rise. -surgery input appreciated: high risk for cholecystectomy acutely, rec eval for percutaneous choleystostomy drainage with elective cholectystectomy later -scheduled for cholecystostomy tomorrow -in setting of acute NSTEMi with high troponin peak, pt is high risk for CV complications of surgery -note pt received plavix 300mg x 1 in ER on 02/08 nstemi: -trops elevated to 4.9 on admit, now trending down, 2.8. ECG unremarkable. -NSTEMI (triggered by acute infectious/inflammatory process) more likely than Type II [place] from demand ischemia with troponin of this magnitude -preserved LV fxn on echo, tds for WMAs -remains asymptomatic -holding antiplatelets in light of need for invasive treatment of cholecystitis -d/c UFH (s/p 72 hrs treatment) -tolerating low dose bb -cont statin -will need nuclear stress test risk-stratification prior to discharge (if low- risk ischemia, plan cholecystectomy 4-6 wks per surgery; if high-risk anatomy, will need cath and delay surgery to complete minimum course of DAPT, depending on input from interventional cardiology) dyslipidemia: -LDL 110, HDL 29 (baseline LDL likely higher, as this is in setting of ACS) -starting atorva 40 for acute plaque stabilization/NSTEMI indication preop CV eval: -high risk clinical indicators (acute NSTEMI) -would be high risk for CV complications of intermediate risk surgery ( choleycstectomy) -he is at acceptable (intermediate) risk of CV complications from low risk procedure (e.g. cholecystostomy drainage)
[2017-02-12] MEDS: ACETAMINOPHEN 325 MG TABLET (FP) PO PRN (15:52)
[2017-02-12] MEDS ORDERED: oxyCODONE HCL 5 MG TABLET PO PRN (21:20)
[2017-02-12] MEDS: ATORVASTATIN CA 40 MG TABLET (FP) PO SCH (21:47)
[2017-02-12] MEDS: HEPARIN NA (PORCINE) 5,000 UNITS/ML 1ML VIAL SQ SCH (22:25)
--- NOTE | 2017-02-12 23:34 | PN ---
Progress Note (short form) - Note Progress Note: No acute events S/P percutaneous cholecystostomy tube by IR Vital Signs Period Temp Pulse Resp BP Sys/Bernal Pulse Ox Last 24 Hr 98.1 F-98.8 F 70-97 16-20 119-143/70-95 99-100 Abd soft, NT, ND CBC,CMP WBC 5.7 K/mm3 (4.0-10.0) 02/12/17 05:35 RBC 5.04 M/mm3 (4.00-5.60) 02/12/17 05:35 Hgb 14.3 GM/dL (11.7-16.9) 02/12/17 05:35 Hct 41.8 % (35.4-49) 02/12/17 05:35 MCV 83.0 fl (80-96) 02/12/17 05:35 MCHC 34.1 g/dl (32.0-35.9) 02/12/17 05:35 RDW 12.8 % (11.9-15.9) 02/12/17 05:35 Plt Count 254 K/MM3 (134-434) 02/12/17 05:35 MPV 8.3 fl (7.5-11.1) 02/12/17 05:35 Neutrophils % 63.9 % (42.8-82.8) 02/12/17 05:35 Lymphocytes % 23.9 % (8-40) 02/12/17 05:35 Monocytes % 8.9 % (3.8-10.2) 02/12/17 05:35 Eosinophils % 2.6 % (0-4.5) 02/12/17 05:35 Basophils % 0.7 % (0-2.0) 02/12/17 05:35 ESR 79 mm/hr (0-20) H 02/10/17 05:35 Sodium 145 mmol/L (136-145) 02/10/17 05:35 Potassium 4.4 mmol/L (3.5-5.1) 02/10/17 05:35 Chloride 105 mmol/L (98-107) 02/10/17 05:35 Carbon Dioxide 27 mmol/L (21-32) 02/10/17 05:35 Anion Gap 13 (8-16) 02/10/17 05:35 BUN 16 mg/dL (7-18) 02/10/17 05:35 Creatinine 1.1 mg/dL (0.7-1.3) 02/10/17 05:35 Creat Clearance w eGFR > 60 (>60) 02/10/17 05:35 Random Glucose 80 mg/dL (74-106) D 02/10/17 05:35 Calcium 9.4 mg/dL (8.5-10.1) 02/10/17 05:35 Total Bilirubin 0.6 mg/dL (0.2-1.0) 02/10/17 05:35 Direct Bilirubin 0.3 mg/dL (0.0-0.2) H 02/10/17 05:35 AST 53 U/L (15-37) H 02/10/17 05:35 ALT 68 U/L (12-78) 02/10/17 05:35 Alkaline Phosphatase 65 U/L (45-117) 02/10/17 05:35 Creatine Kinase 133 IU/L (39-308) 02/09/17 03:35 Creatine Kinase Index 3.4 % (0.0-5.0) 02/08/17 17:35 CK-MB (CK-2) 8.226 ng/ml (0.5-3.6) H 02/08/17 17:35 CK-MB (CK-2) Rel Index Cancelled 02/08/17 17:35 Troponin I 0.28 ng/ml (0.00-0.05) H D 02/11/17 05:35 C-Reactive Protein 11.0 MG/DL (0.00-0.3) H D 02/10/17 05:35 Total Protein 6.5 g/dl (6.4-8.2) 02/10/17 05:35 Albumin 2.9 g/dl (3.4-5.0) L 02/10/17 05:35 Triglycerides Cancelled 02/09/17 10:30 Cholesterol Cancelled 02/09/17 10:30 Total LDL Cholesterol Cancelled 02/09/17 10:30 HDL Cholesterol Cancelled 02/09/17 10:30 Total Amylase 56 U/L (25-115) 02/10/17 05:35 Lipase 440 U/L (73-393) H 02/10/17 05:35 F/U drain output Antibiotics Clears Cardiology following Problem List - Problems (1) Acute cholecystitis Code(s): K81.0 - ACUTE CHOLECYSTITIS (2) Non-STEMI (non-ST elevated myocardial infarction) Code(s): I21.4 - NON-ST ELEVATION (NSTEMI) MYOCARDIAL INFARCTION (3) Elevated lipase Code(s): R74.8 - ABNORMAL LEVELS OF OTHER SERUM ENZYMES
[2017-02-13] MEDS: PIPERACILLIN/TAZOB 4.5 GM/100 ML PRE-DOCKED IVPB SCH ×3 (01:58→17:36)
[2017-02-13] MEDS: HEPARIN NA (PORCINE) 5,000 UNITS/ML 1ML VIAL SQ SCH ×2 (01:58→22:24)
[2017-02-13] MEDS: ACETAMINOPHEN 325 MG TABLET (FP) PO PRN (02:20)
[2017-02-13 08:06] LABS: BASOPHIL 0.3 % (0-2.0); EOSINOPHIL 0.3 % (0-4.5); MCH 28.3 pg (25.7-33.7); MCHC 33.4 g/dl (32.0-35.9); MEAN CELL VOLUME 84.8 fl (80-96); MEAN PLT VOLUME 8.7 fl (7.5-11.1); NEUTROPHILS 79.8 % (42.8-82.8); PLATELET COUNT 238 K/MM3 (134-434); RDW 13.2 % (11.9-15.9); WHITE BLOOD COUNT 9.6 K/mm3 (4.0-10.0)
[2017-02-13] MEDS ORDERED: DIPYRIDAMOLE STRESS TEST 50 MG in DEXTROSE 5%-WATER - 40 ML IVPB ONE (10:00)
--- NOTE | 2017-02-13 14:01 | PN ---
Progress Note, Physician Chief Complaint: RUQ pain at catheter site RUQ when he moves. History of Present Illness: Patient had Cholecystostomy catheter placement yesterday and stress test today. He needs percocet because of pain when he turns or moves at catheter site. Fatigued. No chest pain or SOB. Drainage luna to dark today but clearing somewhat since yesterday. - Current Medication List Current Medications: Active Medications Acetaminophen (Tylenol -) 650 mg PO Q6H PRN PRN Reason: FEVER OR PAIN Last Admin: 02/13/17 02:20 Dose: 650 mg Atorvastatin Calcium (Lipitor -) 40 mg PO HS [facility] Last Admin: 02/12/17 21:47 Dose: 40 mg Heparin Sodium (Porcine) (Heparin -) 5,000 unit SQ BID [facility] Last Admin: 02/13/17 01:58 Dose: 5,000 unit Metoprolol Tartrate (Lopressor -) 25 mg PO BID [facility] Last Admin: 02/12/17 10:00 Dose: 25 mg Nitroglycerin (Nitrostat -) 0.4 mg SL Q5M PRN PRN Reason: FOR CHEST PAIN Last Admin: 02/08/17 19:47 Dose: 0.4 mg Oxycodone HCl (Roxicodone -) 5 mg PO Q6H PRN PRN Reason: PAIN Last Admin: 02/12/17 21:46 Dose: 5 mg Piperacillin Sod/Tazobactam Sod (Zosyn 4.5gm Ivpb (Pre-Docked)) 4.5 gm IVPB Q8H -IV [facility] Last Admin: 02/13/17 01:58 Dose: 4.5 gm Senna (Senna -) 2 tab PO HS PRN PRN Reason: CONSTIPATION - Objective Vital Signs: Vital Signs Temperature 99.1 F 02/13/17 09:00 Pulse Rate 92 H 02/13/17 09:00 Respiratory Rate 18 02/13/17 09:00 Blood Pressure 119/68 02/13/17 09:00 O2 Sat by Pulse Oximetry (%) 97 02/13/17 09:00 Constitutional: Yes: Mild Distress Eyes: Yes: Conjunctiva Clear Cardiovascular: Yes: Regular Rate and Rhythm Respiratory: Yes: Diminished. No: Rales, SOB, Wheezes Gastrointestinal: Yes: Soft, Hypoactive Bowel Sounds, Tenderness (RUQ) Genitourinary: No: Alvarado Present Edema: No Neurological: Yes: Alert Labs: CBC, BMP 02/13/17 06:00 02/10/17 05:35 INR, PTT INR 1.35 (0.82-1.09) H 02/12/17 05:35 Problem List - Problems (1) Non-STEMI (non-ST elevated myocardial infarction) Assessment/Plan: Had persantine stress test today. Code(s): I21.4 - NON-ST ELEVATION (NSTEMI) MYOCARDIAL INFARCTION (2) Abdominal pain Assessment/Plan: Exacerbated by catheter placement when moving or turning. Code(s): R10.9 - UNSPECIFIED ABDOMINAL PAIN (3) Acute cholecystitis Assessment/Plan: Had Cholecystostomy catheter placed yesterday. Code(s): K81.0 - ACUTE CHOLECYSTITIS (4) Obesity Code(s): E66.9 - OBESITY, UNSPECIFIED (5) Hyperlipidemia Assessment/Plan: On Rx. Code(s): E78.5 - HYPERLIPIDEMIA, UNSPECIFIED
--- NOTE | 2017-02-13 17:34 | PN ---
Progress Note, Physician Chief Complaint: NSTEMI History of Present Illness: no cp, sob, palpit, syncope - Current Medication List Current Medications: Active Medications Acetaminophen (Tylenol -) 650 mg PO Q6H PRN PRN Reason: FEVER OR PAIN Last Admin: 02/13/17 02:20 Dose: 650 mg Atorvastatin Calcium (Lipitor -) 40 mg PO HS [facility] Last Admin: 02/12/17 21:47 Dose: 40 mg Heparin Sodium (Porcine) (Heparin -) 5,000 unit SQ BID [facility] Last Admin: 02/13/17 01:58 Dose: 5,000 unit Metoprolol Tartrate (Lopressor -) 25 mg PO BID [facility] Last Admin: 02/12/17 10:00 Dose: 25 mg Nitroglycerin (Nitrostat -) 0.4 mg SL Q5M PRN PRN Reason: FOR CHEST PAIN Last Admin: 02/08/17 19:47 Dose: 0.4 mg Oxycodone HCl (Roxicodone -) 5 mg PO Q6H PRN PRN Reason: PAIN Last Admin: 02/12/17 21:46 Dose: 5 mg Piperacillin Sod/Tazobactam Sod (Zosyn 4.5gm Ivpb (Pre-Docked)) 4.5 gm IVPB Q8H -IV [facility] Last Admin: 02/13/17 01:58 Dose: 4.5 gm Senna (Senna -) 2 tab PO HS PRN PRN Reason: CONSTIPATION - Objective Vital Signs: Vital Signs Temperature 100.2 F H 02/13/17 14:00 Pulse Rate 101 H 02/13/17 14:00 Respiratory Rate 20 02/13/17 14:00 Blood Pressure 117/56 02/13/17 14:00 O2 Sat by Pulse Oximetry (%) 97 02/13/17 09:00 Constitutional: Yes: No Distress, Calm, Mild Distress, Obese Cardiovascular: Yes: Regular Rate and Rhythm, S1, S2. No: Gallop, Murmur Respiratory: Yes: Regular, CTA Bilaterally. No: Accessory Muscle Use, Rales, Wheezes Extremities: No: Cold Edema: No Neurological: Yes: Alert, Oriented Psychiatric: No: Agitated Labs: CBC, BMP 02/13/17 06:00 02/10/17 05:35 INR, PTT INR 1.35 (0.82-1.09) H 02/12/17 05:35 - ....Imaging EKG: Other (tele: NSR) Assessment/Plan Echo 02/21 here: normal LVSF; RWMA tds; nl RV size and overall fxn, apex appears hypo in some views; mild MR/TR; RVSP 30-40; trivial peric eff MPI (pers) here 02/21: no STs; no ischemia; nl EF. No TID reported acute cholecystitis/preop CV eval: -GI input appreciated: likely acute acalculous cholescystitis, does not appear to have biliary pancreatitis -plan for MRI with contrast to confirm hemangioma and to exclude CBD stones given the amylase rise. -surgery input appreciated: high risk for cholecystectomy acutely, rec eval for percutaneous choleystostomy drainage with elective cholectystectomy later -s/p cholecystostomy drainage by IR (on 02/12) NSTEMI: -trops elevated to 4.9 on admit, now trending down, 2.8. ECG unremarkable. -NSTEMI (triggered by acute infectious/inflammatory process) more likely than Type II [place] from demand ischemia with troponin of this magnitude -preserved LV fxn on echo, tds for WMAs -remains asymptomatic -holding antiplatelets in light of need for invasive treatment of cholecystitis -cont statin, metoprolol as doing. -start aspirin 81 once ok with I.R. (s/p cholecystostomy yesterday). -cleared to proceed with elective cholecystectomy in 4-6 wks per surgery's recs (as long as clinical status remains stable cardiologically) -should see us in office in 3-4 weeks (sooner if any chest pain or sob) dyslipidemia: -LDL 110, HDL 29 (baseline LDL likely higher, as this is in setting of ACS) -starting atorva 40 for acute plaque stabilization/NSTEMI indication
[2017-02-13 18:39] LABS: ERYTHROCYTE SEDIMENTATION RATE 74 mm/hr (0-20)
[2017-02-13] MEDS: METOPROLOL TARTRATE 25 MG TABLET (FP) PO SCH (22:24)
[2017-02-13] MEDS: ATORVASTATIN CA 40 MG TABLET (FP) PO SCH (22:24)
[2017-02-14 00:06] LABS: HEP B SURFACE AB Non Reactive (.)
[2017-02-14] MEDS: PIPERACILLIN/TAZOB 4.5 GM/100 ML PRE-DOCKED IVPB SCH (02:19)
[2017-02-14 07:06] LABS: MCH 28.6 pg (25.7-33.7); MCHC 34.3 g/dl (32.0-35.9); MEAN CELL VOLUME 83.5 fl (80-96); MEAN PLT VOLUME 8.3 fl (7.5-11.1); PLATELET COUNT 254 K/MM3 (134-434); RDW 13.3 % (11.9-15.9); WHITE BLOOD COUNT 9.6 K/mm3 (4.0-10.0)
[2017-02-14 08:07] LABS: ALPHA 2 MACROGLOBULINS,QN 126 mg/dL (110-276); BILIRUBIN TOTAL 0.3 mg/dL (0.0-1.2); GGT= 129 IU/L (0-65); GLUCOSE SERUM 86 mg/dL (65-99); HAPTOGLOBIN= 482 mg/dL (34-200); HEIGHT 69 Inches (.); TRIGLYCERIDES= 149 mg/dL (0-149)
--- NOTE | 2017-02-14 08:24 | DS ---
Physical Examination Vital Signs: Vital Signs Temperature 99.1 F 02/14/17 06:00 Pulse Rate 97 H 02/14/17 06:00 Respiratory Rate 20 02/14/17 06:00 Blood Pressure 138/79 02/14/17 06:00 O2 Sat by Pulse Oximetry (%) 97 02/13/17 09:00 Constitutional: Yes: Calm Eyes: No: Sclera Icterus Cardiovascular: Yes: Regular Rate and Rhythm Respiratory: Yes: Regular Gastrointestinal: Yes: Soft, Other (cholecystostomy catheter in place.) Edema: No Neurological: Yes: Alert, Oriented Labs: CBC, BMP 02/14/17 05:35 Discharge Summary Reason For Visit: ACUTE CORONARY SYNDROME Current Active Problems Acute cholecystitis (Acute) Acute cholecystitis due to biliary calculus (Acute) Elevated lipase (Acute) Fatty liver (Acute) GERD (gastroesophageal reflux disease) (Acute) Hyperlipidemia (Acute) Liver hemangioma (Acute) Non-STEMI (non-ST elevated myocardial infarction) (Acute) Obesity (Acute) Right inguinal hernia (Acute) Sludge in gallbladder (Acute) Procedures: Principal: Cardiac monitoring and IV antibiotics. Cholecystostomy Other Procedures: Serial heart enzymes. Cardiology, Surgeon, ID Md's Hospital Course: Slowly improved; stress test stable on discharge Condition: Improved - Instructions Diet, Activity, Other Instructions: No added salt low cholesterol and low fat diet Dr. Stack: see within [address] Chapin in 3-[address] Fox before surgery is scheduled. Referrals: Corey Fox MD [Primary Care Provider] - Graham Stack MD [Staff Physician] - Juvencio Chapin MD [Staff Physician] - Disposition: [facility]/HOME HEALTH CARE - Home Medications Comprehensive Discharge Medication List: Ambulatory Orders Acetaminophen [Tylenol .Regular Strength -] 650 mg PO Q6H PRN #0 tablet Aspirin Coated [Ecotrin -] 81 mg PO DAILY tab 02/14/17 Atorvastatin Ca [Lipitor] 40 mg PO HS #30 tablet 02/14/17 Metoprolol Tartrate [Lopressor -] 25 mg PO BID #60 tablet 02/14/17 Sennosides [Senna -] 2 tab PO HS PRN #0 tablet 02/14/17
[2017-02-14 08:42] LABS: ALBUMIN 3.3 g/dl (3.4-5.0); ALK PHOS 58 U/L (45-117); ANION GAP 11 (8-16); BILIRUBIN,TOTAL 0.8 mg/dL (0.2-1.0); CALCIUM 9.2 mg/dL (8.5-10.1); CO2 24 mmol/L (21-32); COCKROFT - GAULT 101.91; CREATININE 1.2 mg/dL (0.7-1.3); GLUCOSE,RANDOM 90 mg/dL (74-106); SGOT/AST 33 U/L (15-37); SGPT/ALT 64 U/L (12-78); TOT PROT 6.7 g/dl (6.4-8.2)
[2017-02-14 08:46] VITALS: BP 125/77; PULSE 92; TEMP 98
[2017-02-14 09:27] LABS: C-REACTIVE PROTEIN 8.2 MG/DL (0.00-0.3)
[2017-02-14] MEDS: METOPROLOL TARTRATE 25 MG TABLET (FP) PO SCH (09:38)
[2017-02-14] MEDS ORDERED: ASPIRIN COATED 81 MG TABLET.EC PO SCH (10:00)
[2017-02-14] MEDS ORDERED: LACTOBACILLUS ACIDOPHILUS 1 EACH TAB (FP) PO SCH (10:00)
[2017-02-14] MEDS ORDERED: AMOX TR/POT CLAV 500MG/125MG TABLETS (FP) PO SCH (12:00)
== END 2017-02-14 09:47 | disposition home health service (06) | DRG 951 ==
LOC: JER 16:31 → JERBED 19:55 → J4W 02-09 00:59
PROVIDERS: ADMIT Internal Medicine; ATTEND Internal Medicine
PROC: 0F9430Z Drainage of Gallbladder with Drainage Device, Percutaneous Approach (ICD-10-PCS; principal; 2017-02-12)
PROC: BF12YZZ Fluoroscopy of Gallbladder using Other Contrast (ICD-10-PCS; 2017-02-12)
DX: I21.4 Non-ST elevation (NSTEMI) myocardial infarction (principal); K81.0 Acute cholecystitis; K76.0 Fatty (change of) liver, not elsewhere classified; K21.9 Gastro-esophageal reflux disease without esophagitis; E66.9 Obesity, unspecified; E78.5 Hyperlipidemia, unspecified; K40.90 Unilateral inguinal hernia, without obstruction or gangrene, not specified as recurrent; Z68.33 Body mass index [BMI] 33.0-33.9, adult; D18.03 Hemangioma of intra-abdominal structures
CPT/HCPCS: 36415; 47490; 74177-TC; 74182-TC; 76098-TC; 76705-TC; 76942-TC; 78452-TC; 80053; 80061; 80076; 81003; 81015; 82105; 82150; 82172; 82247; 82248; 82465; 82550; 82553; 82947; 82977; 83010; 83690; 83721; 83883; 84450; 84460; 84478; 84484; 85025; 85027; 85610; 85651; 85730; 86140; 86704; 86706; 86708; 87040; 87070; 87075; 87186; 87205; 87340; 87899; 93005; 93010; 93017; 93306-TC; 99283-25; A4358; A9502; C1729; C1769; C1887; J1245; J1644; Q9967

== ENCOUNTER → 2017-03-27 | Day surgery (SDC) | payer OTHER | END | disposition home or self-care (01) | LOC: JRADIR 10:50 | PROVIDERS: ATTEND Surgery | PROC: BF03YZZ Plain Radiography of Gallbladder and Bile Ducts using Other Contrast (ICD-10-PCS; principal; 2017-03-27) | DX: Z43.4 Encounter for attention to other artificial openings of digestive tract (principal); Z90.49 Acquired absence of other specified parts of digestive tract; Z87.19 Personal history of other diseases of the digestive system | CPT/HCPCS: 47531; 74290-TC ==

== ENCOUNTER 2017-04-17 06:30 | Day surgery (SDC) | payer OTHER ==
[2017-04-16 08:21] VITALS: BMI 31.0
--- NOTE | 2017-04-17 07:43 | HP ---
History & Physical Update - History History: No Change - Physical Physical: No Change - Assessment Assessment: No Change - Plan Plan: No Change Currently as noted:: Robotic possible open cholecystectomy
[2017-04-17] MEDS ORDERED: INDOCYANINE GREEN 25 MG/10 ML VIAL IVPUSH ONE ×2 (07:45→08:05)
[2017-04-17] MEDS ORDERED: BUPIVACAINE HCL/PF 0.5% (5MG/ML) 10 ML VIAL ONE (07:46)
[2017-04-17] MEDS ORDERED: MIDAZOLAM HCL 2 MG/2 ML SINGLE DOSE VIAL ONE ×2 (08:03)
[2017-04-17] MEDS ORDERED: ROCURONIUM BROMIDE 50 MG/5 ML VIAL ONE ×2 (08:15→09:20)
[2017-04-17] MEDS ORDERED: PROPOFOL 20 ML ONE ×2 (08:17)
[2017-04-17] MEDS ORDERED: ceFAZolin SODIUM 1 GM VIAL IVPB ONE (08:22)
[2017-04-17] MEDS ORDERED: ceFAZolin SODIUM 1 GM VIAL ONE (08:33)
[2017-04-17] MEDS ORDERED: METOPROLOL TARTRATE 5 MG/5 ML VIAL ONE ×2 (08:53→10:42)
[2017-04-17] MEDS ORDERED: GLYCOPYRROLATE 0.2 MG/1 ML VIAL ONE (10:42)
[2017-04-17] MEDS ORDERED: DEXAMETHASONE SOD PHOSPHATE 4 MG/1 ML VIAL ONE (10:42)
[2017-04-17] MEDS ORDERED: KETOROLAC TROMETHAMINE 30 MG/1 ML VIAL ONE (10:42)
[2017-04-17] MEDS ORDERED: LIDOCAINE HCL/PF 2% SDV 5ML VIAL ONE (10:42)
[2017-04-17] MEDS ORDERED: NEOSTIGMINE METHYLSULFATE 0.5 MG/ML - 10 ML MDV ONE (10:42)
[2017-04-17] MEDS ORDERED: LIDOCAINE HCL 2% JELLY (5 ML/TUBE) ONE (10:42)
[2017-04-17] MEDS ORDERED: BUPIVACAINE HCL/PF (5 MG/ML) 30 ML VIAL IJ ONE (11:25)
[2017-04-17] MEDS ORDERED: ONDANSETRON 4 MG/2 ML VIAL IVPB PRN ×2 (11:28→11:43)
[2017-04-17] MEDS ORDERED: ACETAMINOPHEN 325 MG TABLET (FP) PO PRN ×4 (11:28→11:58)
[2017-04-17] MEDS ORDERED: HYDROmorphone HCL CARPU-JECT 1 MG/1 ML DISP.SYRIN IVPB PRN ×2 (11:28→11:43)
[2017-04-17] MEDS ORDERED: OXYCODONE/APAP 5/325MG COMBO TABLET PO PRN ×2 (11:29→11:43)
[2017-04-17] MEDS ORDERED: D5-1/2NS+20 MEQ KCL - 1,000 ML IV SCH ×2 (11:30→11:43)
--- NOTE | 2017-04-17 11:43 | OP ---
Operative Note - Note: Operative Date: 04/17/17 Pre-Operative Diagnosis: acute/chronic cholecystitis Operation: robotic assisted laparoscopic cholecystectomy and repair of enterotomy Post-Operative Diagnosis: Same as Pre-op Surgeon: Graham Stack Casino Cashier: Adeola Tarango Anesthesiologist/COLLISION MECHANIC: Trudi Willson MD Anesthesia: General Specimens Removed: gallbladder and cholecystostomy tube Fluid Volume Replaced (mls): 1,300 Operative Report Dictated: Yes
--- NOTE | 2017-04-17 11:48 | SURG ---
Surgery Construction Inspector Note Construction Inspector: Adeola Tarango PA-C Date of Service: 04/17/17 Diagnosis: acute/chronic cholecystitis Procedure: robotic assisted laparoscopic cholecystectomy and repair of enterotomy I was present for the entirety of the operative procedure. For further detail, please refer to operative report. Visit type - Case Type Case Type: Scheduled Admission
[2017-04-17] MEDS ORDERED: oxyCODONE HCL 5 MG TABLET PO PRN ×2 (11:54→11:59)
[2017-04-17 12:09] LABS: MCHC 33.2 g/dl (32.0-35.9); MEAN CELL VOLUME 84.4 fl (80-96); MEAN PLT VOLUME 9.2 fl (7.5-11.1); PLATELET COUNT 170 K/MM3 (134-434); RDW 13.8 % (11.9-15.9); WHITE BLOOD COUNT 17.9 K/mm3 (4.0-10.0)
[2017-04-17 12:35] LABS: ALBUMIN 3.8 g/dl (3.4-5.0); ALK PHOS 64 U/L (45-117); ANION GAP 8 (8-16); BILIRUBIN,DIRECT 0.3 mg/dL (0.0-0.2); BILIRUBIN,TOTAL 0.9 mg/dL (0.2-1.0); CALCIUM 8.7 mg/dL (8.5-10.1); CO2 25 mmol/L (21-32); CREATININE 1.1 mg/dL (0.7-1.3); GLUCOSE,RANDOM 168 mg/dL (74-106); SGOT/AST 65 U/L (15-37); SGPT/ALT 80 U/L (12-78); TOT PROT 6.3 g/dl (6.4-8.2)
[2017-04-17] MEDS ORDERED: METOPROLOL TARTRATE 5 MG/5 ML VIAL IVPUSH PRN (15:35)
[2017-04-17] MEDS ORDERED: TRIMETHOBENZAMIDE HCL 200MG/2ML INJ IM PRN (15:38)
[2017-04-17] MEDS ORDERED: SODIUM CHLORIDE 1,000 ML IV SCH (15:45)
[2017-04-17] MEDS: METRONIDAZOLE 500 MG PREMIXED 100 ML IVPB SCH (17:38)
[2017-04-17] MEDS ORDERED: METRONIDAZOLE 500 MG PREMIXED 100 ML IVPB ONE (17:40)
[2017-04-17] MEDS: LEVOFLOXACIN 500 MG IVPB 100 ML IVPB SCH (21:20)
[2017-04-17 21:21] LABS: MCH 27.4 pg (25.7-33.7); MCHC 32.7 g/dl (32.0-35.9); MEAN CELL VOLUME 83.7 fl (80-96); NEUTROPHILS 94.9 % (42.8-82.8); PLATELET COUNT 136 K/MM3 (134-434); RDW 13.9 % (11.9-15.9); WHITE BLOOD COUNT 13.2 K/mm3 (4.0-10.0)
[2017-04-17] MEDS ORDERED: METOPROLOL TARTRATE 25 MG TABLET (FP) PO SCH (22:00)
[2017-04-17] MEDS ORDERED: ATORVASTATIN CA 40 MG TABLET (FP) PO SCH (22:00)
[2017-04-18] MEDS: METRONIDAZOLE 500 MG PREMIXED 100 ML IVPB SCH ×2 (03:00→09:38)
[2017-04-18 07:06] VITALS: BP 137/73; PULSE 102; TEMP 99.1
[2017-04-18 07:38] LABS: MCH 28.4 pg (25.7-33.7); MCHC 34.3 g/dl (32.0-35.9); MEAN CELL VOLUME 82.8 fl (80-96); MEAN PLT VOLUME 9.5 fl (7.5-11.1); PLATELET COUNT 132 K/MM3 (134-434); WHITE BLOOD COUNT 15.8 K/mm3 (4.0-10.0)
[2017-04-18 08:22] LABS: ALBUMIN 3.5 g/dl (3.4-5.0); ALK PHOS 58 U/L (45-117); ANION GAP 11 (8-16); BILIRUBIN,DIRECT 0.3 mg/dL (0.0-0.2); BILIRUBIN,TOTAL 1.4 mg/dL (0.2-1.0); CALCIUM 8.9 mg/dL (8.5-10.1); CO2 24 mmol/L (21-32); CREATININE 0.8 mg/dL (0.7-1.3); GLUCOSE,RANDOM 110 mg/dL (74-106); SGOT/AST 45 U/L (15-37); SGPT/ALT 68 U/L (12-78); TOT PROT 6.2 g/dl (6.4-8.2)
--- NOTE | 2017-04-18 09:19 | OP ---
DATE OF OPERATION: 04/17/2017 SURGEON: Graham Stack MD WOOD DRILLING MACHINE OPERATOR: LUDIN Quiros PREOPERATIVE DIAGNOSES: History of acute cholecystitis, status post percutaneous cholecystostomy tube. POSTOPERATIVE DIAGNOSES: History of acute cholecystitis, status post percutaneous cholecystostomy tube. PROCEDURE: Robotic cholecystectomy, robotic removal of cholecystostomy tube, and repair of small bowel enterotomy. SPECIMEN: Gallbladder and cholecystostomy tube. ESTIMATED BLOOD LOSS: 30 mL. DRAINS: None. ANESTHESIA: GET. REASON FOR PROCEDURE: This is a 57-year-old gentleman who was previously in the hospital for an episode of acute cholecystitis was found to have elevated troponins consistent with an DE. Because of this, he underwent a percutaneous cholecystostomy by interventional radiology. He was subsequently discharged from the hospital when stable. He followed up with interventional radiology for percutaneous cholecystostomy tube study, which showed everything to be within normal limits. He was then scheduled for a robotic, possible open cholecystectomy and removal of the cholecystostomy tube. So, he was consented for robotic cholecystectomy, possible open, and robotic removal of cholecystostomy tube. The risks and benefits of the procedure were explained. These included bleeding, infection, hernia, DE, DVT, PE, injury to surrounding structures including the bowel, colon, bile ducts, vessel injury, nerve injury, duodenal injury, liver injury, gastric injury, esophageal injury, retained stone, bile leak, DE, DVT, PE as some of the complications. Patient understood and signed informed consent. DESCRIPTION OF PROCEDURE: Patient was placed supine on the operating room table. He underwent general endotracheal intubation. The abdomen was prepped and draped in the usual sterile fashion including the cholecystostomy tube. The area was prepped and draped in the usual sterile fashion. Time-out was performed. Incision was made in the supraumbilical region. An 8-mm robotic trocar was used to gain entrance into the abdominal cavity. Laparoscopically, pneumoperitoneum was established. An 8-mm robotic trocar was placed in the left lateral abdominal wall and two in the right lateral abdominal wall. On inspection of the initial trocar site entry at the supraumbilical region, there was noted to be a small area that appeared concerning. Because of this, the area was marked with a 2-0 Ethibond stitch with the Endo Stitch. In order to perform this, 8-mm robotic trocar just to the right of the umbilicus was exchanged for a 10-mm laparoscopic trocar. Once the site was marked for further monitoring, the robotic trocar was replaced. The patient was placed in reverse Trendelenburg [id number] position. The robot was brought over the field and docked. Dissection was performed with the console. Dense inflammatory tissue was immediately noted. The tract of the cholecystostomy tube was dissected, and the surrounding fibrous tissue dissected until the cholecystostomy tube was visualized. At this point, it was cut by the certified physical therapist assistant and removed from the gallbladder and placed off the field. The gallbladder was then retracted cephalad and laterally. Again, careful dissection was performed. Because of the extensive fibrosis of the surrounding region, a top-down approach was used for dissection. The gallbladder was dissected off of the liver and liver bed until only the cystic artery and cystic duct remained. These were circumferentially dissected. In addition, overlying adhesive tissue had to be carefully dissected, as well. These were adhesions to the duodenum as well as to the omentum. Firefly technology was used to confirm anatomy. The cystic duct followed by cystic artery were clipped and transected. The gallbladder was completely freed off the liver bed using electrocautery. Hemostasis of the liver bed was achieved using electrocautery. Copious irrigation suction was performed until clear. The clips were noted to be in good position. At this point, the gallbladder was placed in the right upper quadrant, and the robotic instruments were removed. The robot was undocked from the field. Inspection of the previous questionable enterotomy was again inspected. This was grasped with a bowel grasper laparoscopically. The incision to the right of the umbilicus was extended, and this part of the bowel was exteriorized. Because of the question of a small enterotomy, again further inspection was noted, and a small, tiny defect was noted in the small bowel. This was repaired primarily using multiple 3-0 silk sutures in Lembert fashion. In addition, omentum was used to overlie the repair as a patch. This was secured using a 3-0 silk suture, as well. The entirety of this area of bowel was inspected, and again, no further enterotomies were noted. The bowel was noted to be widely patent. Hemostasis was noted patent. The bowel was then placed back into the abdominal cavity. Laparoscopically, pneumoperitoneum was resufflated and copious irrigation suction was again performed. The bowel was again inspected, noted to be fully repaired. The gallbladder was then grasped and placed in an EndoCatch bag. Further copious irrigation suction was performed until clear. The gallbladder was removed from the abdominal cavity and sent off the field. Pneumoperitoneum was desufflated. All trocars were removed. The patient was placed in supine position. The fascia at the site to the right of the umbilicus was closed using 2-0 Vicryl sutures in figure-of-8 fashion. The fascia was noted to be completely closed. Copious irrigation suction of all wounds was performed. The 3-0 Vicryl suture was used to close the deep dermal tissue at the large incision site. Marcaine was injected at all incision sites, 4-0 Biosyn was used to close all skin incisions. Sterile dressings were applied. The patient tolerated the procedure well and was transferred to the recovery room in stable condition. Karen [id number]
[2017-04-18] MEDS: LEVOFLOXACIN 500 MG IVPB 100 ML IVPB SCH (09:38)
[2017-04-18] MEDS ORDERED: ASPIRIN COATED 81 MG TABLET.EC PO SCH (10:00)
--- NOTE | 2017-04-18 13:27 | PATH ---
Surgical Pathology Report Patient Name: SB BALES Med. Rec. #: [id number] /Age/Gender: 1960 (Age: 57) / M Account: [id number] Location: [address] [place] [address]/[facility] Taken: 04/17/2017 Received: 04/17/2017 Reported: 04/18/2017 Physicians: Graham Stack M.D. Specimen(s) Received GALLBLADDER AND DRAIN Clinical History Acute cholecystitis with chronic cholecystitis Final Diagnosis GALLBLADDER, CHOLECYSTECTOMY: CHRONIC CHOLECYSTITIS AND CHOLELITHIASIS. PORTION OF TUBING CONSISTENT WITH DRAIN PRESENT (GROSS ONLY). Electronically Signed Jair Lowery M.D. Gross Description Received in formalin, labeled "gallbladder," is a 4.8 x 2.7 x 1.7 cm. markedly disrupted portion of gallbladder with a 0.2 cm. in length portion of cystic duct attached. The outer surface is mendoza brown with multifocal defects and varies from smooth to shaggy. The lumen contains a 0.6 cm in greatest dimension black, irregular cholelith. The mucosa is hyperemic. The wall of the gallbladder ranges from 0.1-0.6 cm. in thickness. Separately received within the same container is a 21 cm in length blue, coiled portion of tubing, consistent with a stent. Bath Mix Operator sections are submitted in one cassette. /04/17/201704/17/2017
--- NOTE | 2017-04-18 15:05 | PN ---
Progress Note (short form) - Note Progress Note: ANESTHESIOLOGY POST-OP CHECK 57M S/P lap cholecystectomy under general anesthesia, POD #1. Pain 3-5/10 but tolerable. Tolerating PO, denies N/V. Ambulating voiding. Vital Signs Temperature 99.1 F 04/18/17 06:00 Pulse Rate 102 H 04/18/17 06:00 Respiratory Rate 18 04/18/17 06:00 Blood Pressure 137/73 04/18/17 06:00 O2 Sat by Pulse Oximetry (%) 98 04/17/17 18:00 Active Medications Acetaminophen (Tylenol -) 650 mg PO Q6H PRN PRN Reason: PAIN SCALE 6 - 10 Atorvastatin Calcium (Lipitor -) 40 mg PO HS [facility] Last Admin: 04/17/17 21:20 Dose: 40 mg Fentanyl (Sublimaze Injection -) 50 mcg IVPUSH [id number] PRN PRN Reason: PAIN Stop: 04/20/17 11:56 Last Admin: 04/17/17 12:25 Dose: 50 mcg Hydromorphone HCl (Dilaudid Injection -) 1 mg IVPB Q4H PRN PRN Reason: PAIN Metronidazole (Flagyl 500mg Premixed Ivpb -) 100 mls @ 100 mls/hr IVPB Q8H-IV [facility] Last Admin: 04/18/17 09:38 Dose: 100 mls/hr Levofloxacin (Levaquin 500 Mg Premixed Ivpb -) 100 mls @ 100 mls/hr IVPB DAILY [facility] Last Admin: 04/18/17 09:38 Dose: 100 mls/hr Sodium Chloride (Normal Saline -) 1,000 mls @ 125 mls/hr IV ASDIR [facility] Last Admin: 04/17/17 17:37 Dose: 125 mls/hr Metoprolol Tartrate (Lopressor Injection -) 5 mg IVPUSH Q6H PRN PRN Reason: HYPERTENSION Oxycodone HCl (Roxicodone -) 10 mg PO Q6H PRN PRN Reason: PAIN SCALE 6 - 10 Trimethobenzamide HCl (Tigan Injection -) 200 mg IM Q8H PRN PRN Reason: NAUSEA Gen: awake, alert No apparent anesthesia complications. Pain controlled. Continue management as per primary team
--- NOTE | 2017-04-18 16:02 | PN ---
Progress Note (short form) - Note Progress Note: No acute events States he is pain free Tolerating diet Wants to go home Vital Signs Period Temp Pulse Resp BP Sys/Bernal Pulse Ox Last 24 Hr 98.3 F-99.1 F 87-107 16-18 116-137/73-84 98-99 Abd soft, NT, ND CBC, BMP 04/18/17 06:15 04/18/17 06:15 Discussed elevated WBC Pain free No fevers Would like to go home Continue PO antibiotics as prescribed
== END 2017-04-18 15:24 | disposition home or self-care (01) ==
LOC: JASUSAT 06:30 → J5S 17:45 → JASUSAT 04-18 15:24
PROVIDERS: ATTEND Surgery
PROC: 8E0W8CZ Robotic Assisted Procedure of Trunk Region, Via Natural or Artificial Opening Endoscopic (ICD-10-PCS; 2017-04-17)
PROC: 0DQ84ZZ Repair Small Intestine, Percutaneous Endoscopic Approach (ICD-10-PCS; 2017-04-17)
PROC: 0WP Anatomical Regions, General, Removal (ICD-10-PCS; 2017-04-17)
PROC: 0FT44ZZ Resection of Gallbladder, Percutaneous Endoscopic Approach (ICD-10-PCS; principal; 2017-04-17 08:00)
DX: K81.2 Acute cholecystitis with chronic cholecystitis (principal); Z97.8 Presence of other specified devices; Z43.8 Encounter for attention to other artificial openings
CPT/HCPCS: 44238; 47562; S2900; 36415; 80048; 80076; 85025; 85027; 88304-TC; 94010; 94760

== ENCOUNTER 2021-06-08 14:25 | Inpatient (IN) | payer OTHER ==
[2021-06-08] MEDS ORDERED: ACETAMINOPHEN 325 MG TABLET (FP) PO ONE (15:03)
[2021-06-08] MEDS ORDERED: SODIUM CHLORIDE 1,000 ML IV STA (15:04)
[2021-06-08] MEDS ORDERED: ACETAMINOPHEN 325 MG TABLET (FP) ONE (15:42)
[2021-06-08] MEDS ORDERED: CASIRIVIMAB/IMDEVIMAB 10 ML in SODIUM CHLORIDE 100 ML IVPB ONE (16:25)
[2021-06-08 17:14] LABS: BASO % 0.6 % (0-2.0); EOS % 0.2 % (0-4.5); HEMATOCRIT 44.6 % (35.4-49); HEMOGLOBIN 15.4 GM/dL (11.7-16.9); LYMPH % 8.2 % (8-40); MCH 28.4 pg (25.7-33.7); MCHC 34.4 g/dl (32.0-35.9); MEAN CELL VOLUME 82.5 fl (80-96); MEAN PLT VOLUME 8.4 fl (7.5-11.1); MONO % 8.6 % (3.8-10.2); NEUT % 82.4 % (42.8-82.8); PLATELET COUNT 123 10^3/uL (134-434); RBC 5.41 M/mm3 (4.00-5.60); RDW 14.5 % (11.9-15.9)
[2021-06-08 17:38] LABS: CALCIUM 8.6 mg/dL (8.5-10.1)
[2021-06-08 17:39] LABS: ALBUMIN 3.3 g/dl (3.4-5.0); BLOOD UREA NITROGEN 21.8 mg/dL (7-18)
[2021-06-08 17:42] LABS: CREATININE 0.9 mg/dL (0.55-1.3)
[2021-06-08 17:44] LABS: BILIRUBIN,TOTAL 0.7 mg/dL (0.2-1); TOT PROT 6.5 g/dl (6.4-8.2)
[2021-06-08] MEDS ORDERED: DEXAMETHASONE SOD PHOSPHATE 10 MG/1 ML VIAL IVPUSH ONE (20:37)
[2021-06-08] MEDS ORDERED: DEXAMETHASONE SOD PHOSPHATE 10 MG/1 ML VIAL ONE (20:58)
[2021-06-09] MEDS ORDERED: ACETAMINOPHEN 325 MG TABLET (FP) ONE ×2 (00:22→09:24)
[2021-06-09] MEDS: ACETAMINOPHEN 325 MG TABLET (FP) PO PRN ×2 (00:25→09:45)
[2021-06-09] MEDS: DEXAMETHASONE SOD PHOSPHATE 10 MG/1 ML VIAL IVPUSH SCH ×2 (01:30→09:45)
[2021-06-09] MEDS ORDERED: DEXAMETHASONE SOD PHOSPHATE 10 MG/1 ML VIAL IVPUSH SCH (03:00)
[2021-06-09] MEDS ORDERED: DEXAMETHASONE SOD PHOSPHATE 4 MG/1 ML VIAL ONE (03:08)
[2021-06-09 09:15] LABS: HEMATOCRIT 43.2 % (35.4-49); HEMOGLOBIN 15.2 GM/dL (11.7-16.9); MCH 29.2 pg (25.7-33.7); MCHC 35.2 g/dl (32.0-35.9); MEAN CELL VOLUME 83.1 fl (80-96); PLATELET COUNT 133 10^3/uL (134-434); RDW 14.4 % (11.9-15.9); WHITE BLOOD COUNT 5.7 K/mm3 (4.0-10.0)
[2021-06-09] MEDS ORDERED: DEXAMETHASONE SOD PHOSPHATE 10 MG/1 ML VIAL ONE (09:24)
[2021-06-09] MEDS ORDERED: FAMOTIDINE 20 MG TABLET ONE (09:25)
[2021-06-09] MEDS ORDERED: ZINC SULFATE 220 MG CAPSULE (FP) ONE (09:25)
[2021-06-09] MEDS ORDERED: ENOXAPARIN NA (PORCINE) 40 MG/0.4 ML DISP.SYRIN SQ ONE (09:25)
[2021-06-09] MEDS: FAMOTIDINE 20 MG TABLET PO SCH (09:40)
[2021-06-09] MEDS: ZINC SULFATE 220 MG CAPSULE (FP) PO SCH (09:40)
[2021-06-09] MEDS: ASCORBIC ACID 250 MG TABLET (FP) PO SCH (09:40)
[2021-06-09] MEDS: CHOLECALCIFEROL (VIT D3) 5000 UNITS (125 MCG) CAP PO SCH (09:40)
[2021-06-09 09:43] LABS: CALCIUM 8.4 mg/dL (8.5-10.1)
[2021-06-09 09:44] LABS: MAGNESIUM 2.5 mg/dL (1.8-2.4)
[2021-06-09 09:46] LABS: CREATININE 0.9 mg/dL (0.55-1.3)
[2021-06-09 09:47] LABS: PHOSPHOROUS 3.2 mg/dL (2.5-4.9)
[2021-06-09 09:48] LABS: BILIRUBIN,TOTAL 0.7 mg/dL (0.2-1); TOT PROT 6.3 g/dl (6.4-8.2)
[2021-06-09] MEDS ORDERED: ENOXAPARIN NA (PORCINE) 40 MG/0.4 ML DISP.SYRIN SQ SCH (10:00)
[2021-06-09 10:26] LABS: ANISOCYTOSIS 2+; MACROCYTOSIS 0; PLATELET ESTIMATE DECREASED
[2021-06-09] MEDS: SODIUM CHLORIDE 1,000 ML IV SCH ×2 (12:00→22:14)
[2021-06-09] MEDS ORDERED: REMDESIVIR 200 MG in SODIUM CHLORIDE 250 ML IVPB ONE (16:00)
[2021-06-09 21:52] VITALS: BMI 36.1
[2021-06-09] MEDS: ENOXAPARIN NA (PORCINE) 40 MG/0.4 ML DISP.SYRIN SQ SCH (22:05)
[2021-06-10] MEDS: SODIUM CHLORIDE 1,000 ML IV SCH ×2 (06:50→16:31)
[2021-06-10 08:37] LABS: HEMATOCRIT 39.8 % (35.4-49); HEMOGLOBIN 13.9 GM/dL (11.7-16.9); MEAN CELL VOLUME 82.9 fl (80-96); MEAN PLT VOLUME 8.2 fl (7.5-11.1); PLATELET COUNT 166 10^3/uL (134-434); RDW 14.2 % (11.9-15.9); WHITE BLOOD COUNT 12.4 K/mm3 (4.0-10.0)
[2021-06-10] MEDS ORDERED: PT OWN MED DRAWER 7, Y5N ONE (09:32)
[2021-06-10] MEDS: DEXAMETHASONE SOD PHOSPHATE 10 MG/1 ML VIAL IVPUSH SCH (09:37)
[2021-06-10] MEDS: FAMOTIDINE 20 MG TABLET PO SCH (09:37)
[2021-06-10] MEDS: CHOLECALCIFEROL (VIT D3) 5000 UNITS (125 MCG) CAP PO SCH (09:37)
[2021-06-10] MEDS: ZINC SULFATE 220 MG CAPSULE (FP) PO SCH (09:37)
[2021-06-10] MEDS: ENOXAPARIN NA (PORCINE) 40 MG/0.4 ML DISP.SYRIN SQ SCH ×2 (09:37→22:00)
[2021-06-10] MEDS: ASCORBIC ACID 250 MG TABLET (FP) PO SCH (09:37)
[2021-06-10 09:47] LABS: ALBUMIN 2.6 g/dl (3.4-5.0); BILIRUBIN,TOTAL 0.6 mg/dL (0.2-1); BLOOD UREA NITROGEN 25.3 mg/dL (7-18); CALCIUM 8.1 mg/dL (8.5-10.1); CREATININE 0.9 mg/dL (0.55-1.3); MAGNESIUM 2.3 mg/dL (1.8-2.4); PHOSPHOROUS 2.4 mg/dL (2.5-4.9); TOT PROT 5.7 g/dl (6.4-8.2)
[2021-06-10 09:58] LABS: ANISOCYTOSIS 1+; MACROCYTOSIS 0; OVALOCYTE 1+; PLATELET ESTIMATE DECREASED
[2021-06-10] MEDS: REMDESIVIR 100 MG in SODIUM CHLORIDE 250 ML IVPB SCH (16:29)
[2021-06-11] MEDS ORDERED: PT OWN MED DRAWER 7, Y5N ONE (08:53)
[2021-06-11] MEDS: DEXAMETHASONE SOD PHOSPHATE 10 MG/1 ML VIAL IVPUSH SCH (09:19)
[2021-06-11] MEDS: ASCORBIC ACID 250 MG TABLET (FP) PO SCH (09:19)
[2021-06-11] MEDS: FAMOTIDINE 20 MG TABLET PO SCH (09:19)
[2021-06-11] MEDS: ZINC SULFATE 220 MG CAPSULE (FP) PO SCH (09:19)
[2021-06-11] MEDS: CHOLECALCIFEROL (VIT D3) 5000 UNITS (125 MCG) CAP PO SCH (09:20)
[2021-06-11] MEDS: ENOXAPARIN NA (PORCINE) 40 MG/0.4 ML DISP.SYRIN SQ SCH ×2 (09:20→21:01)
[2021-06-11 11:34] LABS: BASO % 0.2 % (0-2.0); HEMATOCRIT 43.9 % (35.4-49); LYMPH % 3.4 % (8-40); MCH 28.9 pg (25.7-33.7); MCHC 34.3 g/dl (32.0-35.9); MEAN CELL VOLUME 84.4 fl (80-96); MEAN PLT VOLUME 8.4 fl (7.5-11.1); MONO % 3.3 % (3.8-10.2); NEUT % 93.1 % (42.8-82.8); PLATELET COUNT 191 10^3/uL (134-434); RDW 14.6 % (11.9-15.9); WHITE BLOOD COUNT 11.8 K/mm3 (4.0-10.0)
[2021-06-11 11:59] LABS: ALBUMIN 2.9 g/dl (3.4-5.0); BLOOD UREA NITROGEN 21.7 mg/dL (7-18); CALCIUM 8.5 mg/dL (8.5-10.1)
[2021-06-11 12:02] LABS: CREATININE 0.8 mg/dL (0.55-1.3)
[2021-06-11 12:04] LABS: BILIRUBIN,TOTAL 0.6 mg/dL (0.2-1); TOT PROT 6.1 g/dl (6.4-8.2)
[2021-06-11 12:14] LABS: ANISOCYTOSIS 0; HELMET CELLS 0; HOWELL-JOLLY BODIES 0; MACROCYTOSIS 0; OVALOCYTE 0; PLATELET ESTIMATE NORMAL; ROULEAU 0; SICKELED CELLS 0; TARGET CELLS 0; TEAR DROP CELLS 0; TOXIC GRANULATION 0
[2021-06-11 13:53] LABS: ERYTHROCYTE SEDIMENTATION RATE 69 mm/hr (0-20)
[2021-06-11] MEDS: REMDESIVIR 100 MG in SODIUM CHLORIDE 250 ML IVPB SCH (15:26)
[2021-06-12 08:05] LABS: BASO % 0.5 % (0-2.0); HEMATOCRIT 39.5 % (35.4-49); HEMOGLOBIN 13.9 GM/dL (11.7-16.9); LYMPH % 7.2 % (8-40); MCH 29.2 pg (25.7-33.7); MCHC 35.1 g/dl (32.0-35.9); MEAN CELL VOLUME 83.2 fl (80-96); MEAN PLT VOLUME 8.5 fl (7.5-11.1); MONO % 4.7 % (3.8-10.2); NEUT % 87.6 % (42.8-82.8); PLATELET COUNT 197 10^3/uL (134-434); RBC 4.75 M/mm3 (4.00-5.60); RDW 14.4 % (11.9-15.9); WHITE BLOOD COUNT 10.3 K/mm3 (4.0-10.0)
[2021-06-12 08:32] LABS: CALCIUM 8.1 mg/dL (8.5-10.1)
[2021-06-12 08:33] LABS: ALBUMIN 2.5 g/dl (3.4-5.0); BLOOD UREA NITROGEN 17.2 mg/dL (7-18)
[2021-06-12 08:36] LABS: CREATININE 0.7 mg/dL (0.55-1.3)
[2021-06-12 08:37] LABS: BILIRUBIN,TOTAL 0.9 mg/dL (0.2-1); TOT PROT 5.5 g/dl (6.4-8.2)
[2021-06-12 09:31] LABS: ERYTHROCYTE SEDIMENTATION RATE 73 mm/hr (0-20)
[2021-06-12] MEDS: ENOXAPARIN NA (PORCINE) 40 MG/0.4 ML DISP.SYRIN SQ SCH ×2 (09:52→21:04)
[2021-06-12] MEDS: DEXAMETHASONE SOD PHOSPHATE 10 MG/1 ML VIAL IVPUSH SCH (09:52)
[2021-06-12] MEDS: FAMOTIDINE 20 MG TABLET PO SCH (09:52)
[2021-06-12] MEDS: ASCORBIC ACID 250 MG TABLET (FP) PO SCH (09:52)
[2021-06-12] MEDS: ZINC SULFATE 220 MG CAPSULE (FP) PO SCH (09:52)
[2021-06-12] MEDS: CHOLECALCIFEROL (VIT D3) 5000 UNITS (125 MCG) CAP PO SCH (09:53)
[2021-06-12] MEDS: REMDESIVIR 100 MG in SODIUM CHLORIDE 250 ML IVPB SCH (15:10)
[2021-06-13 07:27] LABS: HEMATOCRIT 43.6 % (35.4-49); HEMOGLOBIN 15.1 GM/dL (11.7-16.9); MCH 29.1 pg (25.7-33.7); MCHC 34.8 g/dl (32.0-35.9); MEAN CELL VOLUME 83.8 fl (80-96); MEAN PLT VOLUME 8.4 fl (7.5-11.1); PLATELET COUNT 232 10^3/uL (134-434); WHITE BLOOD COUNT 10.9 K/mm3 (4.0-10.0)
[2021-06-13 07:49] LABS: CALCIUM 8.6 mg/dL (8.5-10.1)
[2021-06-13 07:50] LABS: ALBUMIN 2.8 g/dl (3.4-5.0)
[2021-06-13 07:53] LABS: CREATININE 0.8 mg/dL (0.55-1.3)
[2021-06-13 07:55] LABS: BILIRUBIN,TOTAL 1.1 mg/dL (0.2-1)
[2021-06-13 08:23] LABS: MAGNESIUM 2.2 mg/dL (1.8-2.4)
[2021-06-13] MEDS: DEXAMETHASONE SOD PHOSPHATE 10 MG/1 ML VIAL IVPUSH SCH (09:11)
[2021-06-13] MEDS: FAMOTIDINE 20 MG TABLET PO SCH (09:12)
[2021-06-13] MEDS: ZINC SULFATE 220 MG CAPSULE (FP) PO SCH (09:12)
[2021-06-13] MEDS: ENOXAPARIN NA (PORCINE) 40 MG/0.4 ML DISP.SYRIN SQ SCH (09:12)
[2021-06-13] MEDS: ASCORBIC ACID 250 MG TABLET (FP) PO SCH (09:12)
[2021-06-13] MEDS ORDERED: PT OWN MED DRAWER 7, Y5N ONE (09:14)
[2021-06-13] MEDS: CHOLECALCIFEROL (VIT D3) 5000 UNITS (125 MCG) CAP PO SCH (09:15)
[2021-06-13 10:38] LABS: ANISOCYTOSIS 1+; MACROCYTOSIS 0; OVALOCYTE 1+; PLATELET ESTIMATE NORMAL
[2021-06-13 11:29] VITALS: BP 109/74; PULSE 72; TEMP 97.7
== END 2021-06-13 14:30 | disposition home or self-care (01) | DRG 177 ==
LOC: JER 14:25 → JERBED 19:34 → OBSVTOIN 23:47 → J8W 06-09 20:47
PROVIDERS: ADMIT Internal Medicine; ATTEND Internal Medicine
PROC: XW033E5 Introduction of Remdesivir Anti-infective into Peripheral Vein, Percutaneous Approach, New Technology Group 5 (ICD-10-PCS; principal; 2021-06-09)
DX: U07.1 COVID-19 (principal); J12.82 Pneumonia due to coronavirus disease 2019; M62.82 Rhabdomyolysis; E78.5 Hyperlipidemia, unspecified; K21.9 Gastro-esophageal reflux disease without esophagitis; I25.2 Old myocardial infarction; E66.9 Obesity, unspecified; Z68.36 Body mass index [BMI] 36.0-36.9, adult; I10 Essential (primary) hypertension; D69.6 Thrombocytopenia, unspecified; R06.03 Acute respiratory distress; K76.0 Fatty (change of) liver, not elsewhere classified; R74.01 Elevation of levels of liver transaminase levels; K40.90 Unilateral inguinal hernia, without obstruction or gangrene, not specified as recurrent; D18.09 Hemangioma of other sites; R51.9 Headache, unspecified
CPT/HCPCS: 36415; 71046-TC-FY; 80053; 82550; 82553; 82728; 83605; 83615; 83735; 84100; 85025; 85379; 85651; 86140; 86769; 87040; 87804; 87899; 93005; 93010; 94761; 99285-25; C9399; C9803; G0378; J1100; U0003; U0005